=== PATIENT | male | born 1960 | race Caucasian/White ===

== ENCOUNTER 2022-01-07 00:07 | Inpatient (IN) | payer OTHER, SELFPAY ==
[2022-01-07 00:34] VITALS: BMI 45.7
--- NOTE | 2022-01-07 01:06 | PC.ADMIT ---
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 CONDITIONAL VOLUNTARY. 15 MIN SAFETY CHECKS. PSYCH GROUP. EKG NORMAL SINUS RHYTHM. VITAL SIGNS STABLE. NO CURRENT OR PREVIOUS SUBSTANCE USE HISTORY. NO KNOWN TRAUMA HISTORY. HX OF MULTIPLE PREVIOUS PSYCH ADMISSIONS BUT UNKNOWN TO [facility] [place]. NOT A TOBACCO USER. PT WAS ADMITTED FOR SI WITH A PLAN TO PUT A HOSE IN HIS EXHAUST PIPE OF HIS CAR. PT CONTINUES TO EXPRESS SI BUT FEELS SAFE ON THE UNIT AND CAN SEEK STAFF IF FEELING SUICIDAL. PT IS RECENTLY LIVING WITH HIS SISTER AND SLEEPING ON HER COUCH DUE TO FAMILY ISSUES. PT IS UNHAPPY WITH HIS CURRENT SITUATION AND FEELS HELPLESS/HOPELESS. PT IS MEDICATION COMPLIANT. HE APPEARS DEPRESSED AND ANXIOUS UPON ADMISSION. PT REPORTS THAT DOING DAILY TASKS BY HIMSELF HAVE BEEN DIFFICULT DUE TO DEPRESSION. PTS INSIGHT AND JUDGMENT ARE IMPAIRED. HE IS A&OX4. PT DENIES HI. PT DENIES AH OR VH AND DOES NOT APPEAR TO BE RESPONDING TO INTERNAL STIMULI. PT APPEARS IF HE MAY HAVE A SLIGH COGNITIVE DELAY AND IS MORE FOCUSED ON HIS SISTER'S PROBLEMS THAN HIS. PTS ADMISSION IS COMPLETE, HOWEVER, LEGALS NEED TO BE SIGNED PT TOOK SLEEPING MEDS AND WANTED TO GO TO BED UPON ARRIVAL.
[2022-01-07 06:00] VITALS: BP 130/82; PULSE 78; RESP 20; TEMP 36.6; O2SAT 97
[2022-01-07 08:08] LABS: MANUAL DIFF FLAG NO
[2022-01-07 08:19] LABS: Basophils Percent Auto 0.4 % (0-2); Eosinophils Absolute Auto 0.3 X10*3/uL (0.0-0.4); Eosinophils Percent Auto 4.3 % (0-4); Hematocrit 41.4 % (42.0-52.0); Hemoglobin 13.8 g/dl (14.0-18.0); Imm Gran Abs Auto 0.04 X10*3/uL (0.00-0.03); Imm Gran Pct Auto 0.6 % (0.0-0.4); Lymphocytes Absolute Auto 1.5 X10*3/uL (1.2-4.9); Lymphocytes Percent Auto 20.9 % (20-40); Mean Corpuscular HGB Conc 33.3 g/dl (31.0-36.0); Mean Corpuscular Hemoglobin 31.1 pg (27.0-33.0); Mean Corpuscular Volume 93.2 fL (80.0-98.0); Mean Platelet Volume 12.6 fL (9.4-12.4); Monocytes Absolute Auto 0.7 X10*3/uL (0.1-1.2); Monocytes Percent Auto 10.1 % (2-11); Neutrophils Absolute Auto 4.4 x10*3/uL (2.0-8.3); Neutrophils Percent Auto 63.7 % (45-73); Platelet Count 115 X10*3/uL (160-400); Red Blood Count 4.44 X10*6/uL (4.60-5.80); Red Cell Distribution Width 13.1 % (11.0-16.0); White Blood Count 6.9 X10*3/uL (4.8-10.8)
[2022-01-07 08:40] LABS: Alanine Aminotransferase 21 U/L (0-40); Albumin Level 3.5 g/dL (3.5-5.0); Alkaline Phosphatase 111 U/L (39-117); Anion Gap 14 (12-20); Aspartate Amino Transferase 14 U/L (5-37); Bilirubin Total 0.7 mg/dL (0.0-1.0); Blood Urea Nitrogen 18 mg/dL (9-16); Calcium 8.5 mg/dL (8.4-10.2); Carbon Dioxide 26 mmol/L (22-29); Chloride 100 mmol/L (96-108); Cholesterol 107 mg/dL; Creatinine Clr Calc Pharmacy 155.4; Estimated Glomerular Filt Rate > 60; Glucose Fasting 114 mg/dL (60-99); HDL Cholesterol 35 mg/dL; LDL Cholesterol Calculated 59 mg/dl; Sodium 136 mmol/L (135-145); Triglycerides 68 mg/dL
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
[2022-01-07] MEDS: hydrOXYzine HCL 25 MG TABLET PO ×2 (12:09→19:08)
[2022-01-07] MEDS: Acetaminophen 325 MG TABLET 650 MG PO ×2 (12:09→19:07)
[2022-01-07] MEDS: Famotidine 20 MG TABLET PO ×2 (16:00→20:03)
[2022-01-07] MEDS: Gabapentin 600 MG TABLET PO ×2 (16:00→20:03)
[2022-01-07] MEDS: allopurinoL 100 MG TABLET 200 MG PO (16:00)
[2022-01-07] MEDS: Aspirin Enteric Coated 81 MG TABLET.DR PO (16:01)
[2022-01-07 18:00] VITALS: BP 125/73; PULSE 73; RESP 16; TEMP 36.9; O2SAT 98
[2022-01-07] MEDS: clonazePAM 0.5 MG TABLET PO (20:03)
[2022-01-07] MEDS: QUEtiapine Fumarate 300 MG TABLET PO (20:03)
[2022-01-07] MEDS: Atorvastatin Calcium 80 MG TABLET PO (20:04)
[2022-01-07] MEDS: Mirtazapine 30 MG TABLET PO (20:04)
[2022-01-07] MEDS: Nystatin Cream 15 GM TUBE 1 APPL TOPICAL (21:36)
[2022-01-08 06:00] VITALS: BP 92/50; PULSE 65; RESP 18; TEMP 36.1; O2SAT 95
[2022-01-08] MEDS: Levothyroxine Sodium 75 MCG TABLET PO (06:26)
--- NOTE | 2022-01-08 06:34 | PC.NURSE ---
Pt C/O fungal infection around his navel/belly button. Provider notified. Nystatin cream ordered.
[2022-01-08] MEDS: allopurinoL 100 MG TABLET 200 MG PO (09:04)
[2022-01-08] MEDS: Gabapentin 600 MG TABLET PO ×3 (09:05→20:10)
[2022-01-08] MEDS: Aspirin Enteric Coated 81 MG TABLET.DR PO (09:05)
[2022-01-08] MEDS: Cholecalciferol (Vitamin D3) 25 MCG TABLET 50 MCG PO (09:05)
[2022-01-08] MEDS: Famotidine 20 MG TABLET PO ×2 (09:05→20:10)
[2022-01-08] MEDS: QUEtiapine Fumarate 100 MG TABLET PO (09:05)
[2022-01-08] MEDS: Loratadine 10 MG TABLET PO (09:06)
[2022-01-08 09:08] VITALS: BP 100/62; PULSE 71
[2022-01-08] MEDS: hydrOXYzine HCL 25 MG TABLET PO (10:32)
[2022-01-08] MEDS: Acetaminophen 325 MG TABLET 650 MG PO ×2 (10:32→20:53)
--- NOTE | 2022-01-08 11:43 | P.PNPSI_ITS ---
Subjective Subjective Date of Service: 01/08/22 Reason For Visit: Unspecified Depressive Disorder Other Specified Pe Subjective Notes: Conditional Voluntary Interim History: Met with patient. Discussed with Nursing. Has been more isolative and withdrawn today. Reports today feeling down in the context of 01/08 anniversary. Reminisced about when this happened. Reports feeling overwhelmed thinking about it. Intermittent SI. No psychosis. Feeling supported. Medication Compliance: Yes Side effects from medications: No Attending Groups: Yes Review of Systems Acute medical concerns: No Review of Systems Review of Systems Unremarkable Mental Status Exam Mental Status Exam Narrative: Pleasant. Engaged. Organized. Depressed. Intermittent SI. No HI. No psy chosis. Insight and judgment okay Diagnostics Vital Signs (24Hr): Vital Signs - 24 hr 01/07/22 18:00 01/08/22 06:00 01/08/22 09:08 Temperature 98.5 F 97.0 F Pulse Rate 73 65 71 Respiratory Rate 16 18 Blood Pressure 125/73 92/50 L 100/62 Pulse Oximetry 98 95 Oxygen Delivery Method Room Air Room Air BMI result Body Mass Index 45.7 Labs Results: 01/07/22 07:41 01/07/22 07:41 Labs: Laboratory Results - last 48 hr 01/07/22 01/07/22 07:41 07:41 WBC 6.9 RBC 4.44 L Hgb 13.8 L Hct 41.4 L MCV 93.2 MCH 31.1 MCHC 33.3 RDW 13.1 Plt Count 115 L MPV 12.6 H Immature Gran % (Auto) 0.6 H Neut % (Auto) 63.7 Lymph % (Auto) 20.9 [place] % (Auto) 10.1 Eos % (Auto) 4.3 H Baso % (Auto) 0.4 Lymph # (Auto) 1.5 [place] # (Auto) 0.7 Eos # (Auto) 0.3 Baso # (Auto) 0.0 Abs Immat Gran (auto) 0.04 H Absolute Neuts (auto) 4.4 Absolute Nucleated RBC 0.000 Nucleated RBC % (auto) 0.0 Sodium 136 Potassium 4.0 Chloride 100 Carbon Dioxide 26 Anion Gap 14 BUN 18 H Creatinine 0.78 Estim Creat Clear Calc 155.4 Estimated GFR > 60 Fasting Glucose 114 H Calcium 8.5 Total Bilirubin 0.7 AST 14 ALT 21 Alkaline Phosphatase 111 Total Protein 6.0 L Albumin 3.5 Triglycerides 68 Cholesterol 107 LDL Cholesterol, Calc 59 HDL Cholesterol 35 Medications Medications Current Medications Acetaminophen (Acetaminophen 325 Mg Tablet) 650 mg PO Q6H PRN PRN Reason: Headache/Pain Mild Scale (1-3) Last Admin: 01/08/22 10:32 Dose: 650 mg Al Hydroxide/Mg Hydroxide (Magnesium Hydrox/Alum Hydrox 30 Ml Oral.Susp) 30 ml PO Q6H PRN PRN Reason: Heartburn/Nausea Allopurinol (Allopurinol 100 Mg Tablet) 200 mg PO DAILY [facility] Last Admin: 01/08/22 09:04 Dose: 200 mg Aspirin (Aspirin Enteric Coated 81 Mg Tablet.Dr) 81 mg PO DAILY [facility] Last Admin: 01/08/22 09:05 Dose: 81 mg Atorvastatin Calcium (Atorvastatin Calcium 80 Mg Tablet) 80 mg PO BEDTIME [facility] Last Admin: 01/07/22 20:04 Dose: 80 mg Clonazepam (Clonazepam 0.5 Mg Tablet) 0.5 mg PO BEDTIME [facility] Last Admin: 01/07/22 20:03 Dose: 0.5 mg Famotidine (Famotidine 20 Mg Tablet) 20 mg PO BID [facility] Last Admin: 01/08/22 09:05 Dose: 20 mg Gabapentin (Gabapentin 600 Mg Tablet) 600 mg PO TID [facility] Last Admin: 01/08/22 09:05 Dose: 600 mg Hydroxyzine HCl (Hydroxyzine Hcl 25 Mg Tablet) 25 mg PO Q6H PRN PRN Reason: Anxiety Last Admin: 01/08/22 10:32 Dose: 25 mg Levothyroxine Sodium (Levothyroxine Sodium 75 Mcg Tablet) 75 mcg PO DAILY@0630 [facility] Last Admin: 01/08/22 06:26 Dose: 75 mcg Lisinopril (Lisinopril 20 Mg Tablet) 20 mg PO DAILY [facility]; Protocol Last Admin: 01/08/22 09:06 Dose: Not Given Loratadine (Loratadine 10 Mg Tablet) 10 mg PO DAILY [facility] Last Admin: 01/08/22 09:06 Dose: 10 mg Magnesium Hydroxide (Milk Of Magnesia 30 Ml Oral.Susp) 30 ml PO DAILY PRN PRN Reason: Constipation Metoprolol Succinate (Metoprolol Succinate Er 50 Mg Tab.Er.24h) 50 mg PO DAILY [facility]; Protocol Last Admin: 01/08/22 09:06 Dose: Not Given Mirtazapine (Mirtazapine 30 Mg Tablet) 30 mg PO BEDTIME [facility] Last Admin: 01/07/22 20:04 Dose: 30 mg Quetiapine Fumarate (Quetiapine Fumarate 100 Mg Tablet) 100 mg PO DAILY [facility] Last Admin: 01/08/22 09:05 Dose: 100 mg Quetiapine Fumarate (Quetiapine Fumarate 300 Mg Tablet) 300 mg PO BEDTIME [facility] Last Admin: 01/07/22 20:03 Dose: 300 mg Trazodone HCl (Trazodone Hcl 50 Mg Tablet) 50 mg PO BEDTIME PRN PRN Reason: Insomnia Vitamin D (Cholecalciferol (Vitamin D3) 25 Mcg Tablet) 50 mcg PO DAILY [facility] Last Admin: 01/08/22 09:05 Dose: 50 mcg Allergies Allergies Allergy/AdvReac Type Severity Reaction Status Date / Time No Known Allergies Allergy Verified 01/06/22 14:44 Assessment & Plan Assessment & Plan (1) Major depress dis, severe: Status: Acute Code(s): F32.2 - Major depressive disorder, single episode, severe without psychotic features Assessment and Plan: Presents with depression in the context of significant psychosocial stressors and suicidal thoughts. Is in outpatient care. Will not make any medication changes i.e. maintain Seroquel 100 mg morning 300 mg at bedtime, Remeron 30 mg at bedtime, gabapentin 600 mg 3 times per day and Klonopin 0.5 mg at bedtime. Continue to review psychotropic regimen as patient stabilizes in the hospital and also review non medication supports. 01/08/2022: No changes I spent minutes with the patient and/or on the patient floor today, greater than?50% of which was spent counseling/coordinating care. Reason for contiued inpatient stay Substantial Risk for: inability to function
[2022-01-08] MEDS: Triamcinolone Acet 0.1 % Cream 15 GM TUBE 1 APPL TOPICAL ×2 (14:12→20:17)
[2022-01-08 18:00] VITALS: BP 121/86; PULSE 88; RESP 18
[2022-01-08] MEDS: Mirtazapine 30 MG TABLET PO (20:10)
[2022-01-08] MEDS: clonazePAM 0.5 MG TABLET PO (20:10)
[2022-01-08] MEDS: Atorvastatin Calcium 80 MG TABLET PO (20:10)
[2022-01-08] MEDS: QUEtiapine Fumarate 300 MG TABLET PO (20:11)
[2022-01-09 06:00] VITALS: BP 111/64; PULSE 64; RESP 18; O2SAT 98
[2022-01-09] MEDS: Levothyroxine Sodium 75 MCG TABLET PO (06:39)
[2022-01-09] MEDS: Famotidine 20 MG TABLET PO ×2 (08:41→21:25)
[2022-01-09] MEDS: Metoprolol Succinate ER 50 MG TAB.ER.24H PO (08:41)
[2022-01-09] MEDS: lisinopriL 20 MG TABLET PO (08:41)
[2022-01-09] MEDS: Gabapentin 600 MG TABLET PO ×3 (08:41→21:26)
[2022-01-09] MEDS: Cholecalciferol (Vitamin D3) 25 MCG TABLET 50 MCG PO (08:41)
[2022-01-09] MEDS: Aspirin Enteric Coated 81 MG TABLET.DR PO (08:42)
[2022-01-09] MEDS: Triamcinolone Acet 0.1 % Cream 15 GM TUBE 1 APPL TOPICAL (08:42)
[2022-01-09] MEDS: QUEtiapine Fumarate 100 MG TABLET PO (08:42)
[2022-01-09] MEDS: allopurinoL 100 MG TABLET 200 MG PO (08:42)
[2022-01-09] MEDS: Loratadine 10 MG TABLET PO (08:42)
[2022-01-09] MEDS: Acetaminophen 325 MG TABLET 650 MG PO ×2 (08:50→21:32)
[2022-01-09] MEDS: hydrOXYzine HCL 25 MG TABLET PO (10:40)
[2022-01-09 16:10] VITALS: BP 124/81; PULSE 78; TEMP 36.2
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
[2022-01-09] MEDS: Mirtazapine 30 MG TABLET PO (21:24)
[2022-01-09] MEDS: QUEtiapine Fumarate 300 MG TABLET PO (21:25)
[2022-01-09] MEDS: clonazePAM 0.5 MG TABLET PO (21:25)
[2022-01-09] MEDS: Atorvastatin Calcium 80 MG TABLET PO (21:25)
[2022-01-10 06:00] VITALS: BP 94/52; PULSE 63; RESP 16; TEMP 36.6; O2SAT 93
[2022-01-10] MEDS: Levothyroxine Sodium 75 MCG TABLET PO (06:44)
[2022-01-10] MEDS: Gabapentin 600 MG TABLET PO ×3 (08:47→20:43)
[2022-01-10] MEDS: Cholecalciferol (Vitamin D3) 25 MCG TABLET 50 MCG PO (08:47)
[2022-01-10] MEDS: QUEtiapine Fumarate 100 MG TABLET PO (08:47)
[2022-01-10] MEDS: allopurinoL 100 MG TABLET 200 MG PO (08:47)
[2022-01-10] MEDS: Aspirin Enteric Coated 81 MG TABLET.DR PO (08:47)
[2022-01-10] MEDS: Loratadine 10 MG TABLET PO (08:47)
[2022-01-10] MEDS: Famotidine 20 MG TABLET PO ×2 (08:47→20:43)
[2022-01-10] MEDS: Triamcinolone Acet 0.1 % Cream 15 GM TUBE 1 APPL TOPICAL ×2 (08:53→20:45)
[2022-01-10] MEDS: Acetaminophen 325 MG TABLET 650 MG PO (14:23)
[2022-01-10] MEDS: hydrOXYzine HCL 25 MG TABLET PO (14:23)
[2022-01-10 18:00] VITALS: BP 120/73; PULSE 70; RESP 16; TEMP 36.5; O2SAT 98
--- NOTE | 2022-01-10 19:15 | HO.PSYCHPN ---
Subjective Subjective Date of Service: 01/10/22 Reason For Visit: Unspecified Depressive Disorder Other Specified Pe Interim History: I spoke with pt and pt's team. He is still focused on housing, just talking about it depresses me, does not want to return to his sister's residence, my sister lives in a depressing world. He feels stuck and hopeless. Feels that if i had a place to live i wouldnt be depressed. Upset about not having a car, as this is how he would cope with his sister's mental health issues- by driving away. Open to trialing an SSRI, denies having tried one before, but now feels I should try something. Past med trials consist of seroquel, remeron, and klonopin. Medication Compliance: Yes Side effects from medications: No Attending Groups: Intermittent Review of Systems Acute medical concerns: No Medical Review of Systems: unchanged Mental Status Exam Mental Status Exam Narrative: Pleasant.? Engaged.? Organized.? Depressed.? Denies active SI.? No HI.? No psychosis.? Insight and judgment okay Diagnostics Vital Signs (24Hr): Vital Signs - 24 hr 01/10/22 06:00 Temperature 97.8 F Pulse Rate 63 Respiratory Rate 16 Blood Pressure 94/52 L Pulse Oximetry 93 Oxygen Delivery Method Room Air BMI result Body Mass Index 45.7 Labs Results: 01/07/22 07:41 01/07/22 07:41 Medications Medications Current Medications Acetaminophen (Acetaminophen 325 Mg Tablet) 650 mg PO Q6H PRN PRN Reason: Headache/Pain Mild Scale (1-3) Last Admin: 01/10/22 14:23 Dose: 650 mg Al Hydroxide/Mg Hydroxide (Magnesium Hydrox/Alum Hydrox 30 Ml Oral.Susp) 30 ml PO Q6H PRN PRN Reason: Heartburn/Nausea Allopurinol (Allopurinol 100 Mg Tablet) 200 mg PO DAILY [facility] Last Admin: 01/10/22 08:47 Dose: 200 mg Aspirin (Aspirin Enteric Coated 81 Mg Tablet.) 81 mg PO DAILY [facility] Last Admin: 01/10/22 08:47 Dose: 81 mg Atorvastatin Calcium (Atorvastatin Calcium 80 Mg Tablet) 80 mg PO BEDTIME [facility] Last Admin: 01/09/22 21:25 Dose: 80 mg Clonazepam (Clonazepam 0.5 Mg Tablet) 0.5 mg PO BEDTIME [facility] Last Admin: 01/09/22 21:25 Dose: 0.5 mg Clonazepam (Clonazepam 0.5 Mg Tablet) 0.5 mg PO DAILY PRN PRN Reason: agitation, anxiety Famotidine (Famotidine 20 Mg Tablet) 20 mg PO BID [facility] Last Admin: 01/10/22 08:47 Dose: 20 mg Gabapentin (Gabapentin 600 Mg Tablet) 600 mg PO TID [facility] Last Admin: 01/10/22 14:23 Dose: 600 mg Hydroxyzine HCl (Hydroxyzine Hcl 25 Mg Tablet) 25 mg PO Q6H PRN PRN Reason: Anxiety Last Admin: 01/10/22 14:23 Dose: 25 mg Levothyroxine Sodium (Levothyroxine Sodium 75 Mcg Tablet) 75 mcg PO DAILY@0630 [facility] Last Admin: 01/10/22 06:44 Dose: 75 mcg Lisinopril (Lisinopril 20 Mg Tablet) 20 mg PO DAILY [facility]; Protocol Last Admin: 01/10/22 08:52 Dose: Not Given Loratadine (Loratadine 10 Mg Tablet) 10 mg PO DAILY [facility] Last Admin: 01/10/22 08:47 Dose: 10 mg Magnesium Hydroxide (Milk Of Magnesia 30 Ml Oral.Susp) 30 ml PO DAILY PRN PRN Reason: Constipation Metoprolol Succinate (Metoprolol Succinate Er 50 Mg Tab.Er.24h) 50 mg PO DAILY [facility]; Protocol Last Admin: 01/10/22 08:52 Dose: Not Given Mirtazapine (Mirtazapine 30 Mg Tablet) 30 mg PO BEDTIME [facility] Last Admin: 01/09/22 21:24 Dose: 30 mg Quetiapine Fumarate (Quetiapine Fumarate 100 Mg Tablet) 100 mg PO DAILY [facility] Last Admin: 01/10/22 08:47 Dose: 100 mg Quetiapine Fumarate (Quetiapine Fumarate 300 Mg Tablet) 300 mg PO BEDTIME [facility] Last Admin: 01/09/22 21:25 Dose: 300 mg Trazodone HCl (Trazodone Hcl 50 Mg Tablet) 50 mg PO BEDTIME PRN PRN Reason: Insomnia Triamcinolone Acetonide (Triamcinolone Acet 0.1 % Cream 15 Gm Tube) 1 appl TOPICAL BID [facility]; Protocol Last Admin: 01/10/22 08:53 Dose: 1 appl Vitamin D (Cholecalciferol (Vitamin D3) 25 Mcg Tablet) 50 mcg PO DAILY [facility] Last Admin: 01/10/22 08:47 Dose: 50 mcg Allergies Allergies Allergy/AdvReac Type Severity Reaction Status Date / Time No Known Allergies Allergy Verified 01/06/22 14:44 Assessment & Plan Assessment & Plan (1) Major depress dis, severe: Status: Acute Code(s): F32.2 - Major depressive disorder, single episode, severe without psychotic features Assessment and Plan: Presents with depression in the context of significant psychosocial stressors and suicidal thoughts.? Is in outpatient care. Will not make any medication changes i.e. maintain Seroquel 100 mg morning 300 mg at bedtime, Remeron 30 mg at bedtime, gabapentin 600 mg 3 times per day and Klonopin 0.5 mg at bedtime.? Continue to review psychotropic regimen as patient stabilizes in the hospital and also review non medication supports. 01/08/2022:? No changes 01/09/2022:? No changes, pt declines, reports meds help 01/10/2022: Start lexapro 10 mg QD for depression I spent minutes with the patient and/or on the patient floor today, greater than?50% of which was spent counseling/coordinating care. Patient educated on: diagnosis, medication risk/benefits and therapeutic strategies Reason for contiued inpatient stay Substantial Risk for: harm to self and med/psych decompensation
[2022-01-10] MEDS: Mirtazapine 30 MG TABLET PO (20:43)
[2022-01-10] MEDS: Atorvastatin Calcium 80 MG TABLET PO (20:43)
[2022-01-10] MEDS: QUEtiapine Fumarate 300 MG TABLET PO (20:44)
[2022-01-10] MEDS: clonazePAM 0.5 MG TABLET PO (20:44)
[2022-01-11 08:40] VITALS: BP 97/50; PULSE 63; TEMP 36.5
[2022-01-11] MEDS: Metoprolol Succinate ER 50 MG TAB.ER.24H PO (08:51)
[2022-01-11] MEDS: Escitalopram Oxalate 10 MG TABLET PO (08:51)
[2022-01-11] MEDS: Aspirin Enteric Coated 81 MG TABLET.DR PO (08:52)
[2022-01-11] MEDS: Levothyroxine Sodium 75 MCG TABLET PO (08:52)
[2022-01-11] MEDS: Cholecalciferol (Vitamin D3) 25 MCG TABLET 50 MCG PO (08:52)
[2022-01-11] MEDS: Loratadine 10 MG TABLET PO (08:52)
[2022-01-11] MEDS: Famotidine 20 MG TABLET PO ×2 (08:53→21:14)
[2022-01-11] MEDS: allopurinoL 100 MG TABLET 200 MG PO (08:53)
[2022-01-11] MEDS: QUEtiapine Fumarate 100 MG TABLET PO (08:53)
[2022-01-11] MEDS: Triamcinolone Acet 0.1 % Cream 15 GM TUBE 1 APPL TOPICAL ×2 (08:53→21:21)
[2022-01-11] MEDS: Gabapentin 600 MG TABLET PO ×3 (08:53→21:14)
[2022-01-11] MEDS: lisinopriL 20 MG TABLET PO (08:53)
--- NOTE | 2022-01-11 11:46 | HO.PM.IMCN ---
History of Present Illness Data of Consult Service Date: 01/11/22 Requesting physician: Serenity Hernandez Primary Care Provider: SHAYNA Talavera Reason for consult: medical H&P 61 year old male with history of hypothyroidism, htn, chronic gout, GERD, ulnar neuropathy, depression, anxiety, and morbid obesity admitted to psychiatry. He tells me at home he uses a powder to prevent fungal rashes in the intertriginous areas, but he is given an antifungal cream here which is difficult for him to use. He also reports constipation this morning. No other complaints. Review of Systems Review of Systems: General: No fevers, malaise, unintentional weight loss Cardiovascular: No chest pain, palpitations, or leg edema Respiratory: No shortness of breath, wheezing, cough GI: +constipation. No abdominal pain, nausea, vomiting, diarrhea, melena, hematochezia Neuro: No headaches, weakness, paresthesias Psych: +depression, +anxiety Skin: No rashes or lesions [facility] Medical History (Updated 01/11/22 @ 11:54 by KRYSTYNA Brown) Chronic gout GERD (gastroesophageal reflux disease) HTN (hypertension) Hypothyroidism Ulnar neuropathy Social History Household Members: Family Household Members Other:: SISTER Housing: Other Housing Other:: STAYING ON [place] [place] AT [facility]-UNSTABLE HOUSING Do you presently have visiting nurse or other home services: No Patient Tobacco Use Status: Never used Tobacco Use of substances other than those prescribed or required for medical reasons: No Currently Displaying Signs/Symptoms of Drug Intoxication Withdrawal: No Do you feel safe in your current relationship?: Yes Is there a partner from a previous relationship who is making you feel unsafe now?: No Advance Directives: No Advance Directives Information Provided: No Do you have thoughts of harming others: None Do you have a plan to hurt others: No Plan Recently lost weight without trying: No Nutrition Risks: No Nutritional Risk Poor oral hygiene: No service: No Sexual orientation: Straight/Heterosexual Meds Allergies Allergy/AdvReac Type Severity Reaction Status Date / Time No Known Allergies Allergy Verified 01/06/22 14:44 Active Medications: Current Medications Acetaminophen (Acetaminophen 325 Mg Tablet) 650 mg PO Q6H PRN PRN Reason: Headache/Pain Mild Scale (1-3) Last Admin: 01/10/22 14:23 Dose: 650 mg Al Hydroxide/Mg Hydroxide (Magnesium Hydrox/Alum Hydrox 30 Ml Oral.Susp) 30 ml PO Q6H PRN PRN Reason: Heartburn/Nausea Allopurinol (Allopurinol 100 Mg Tablet) 200 mg PO DAILY [facility] Last Admin: 01/11/22 08:53 Dose: 200 mg Aspirin (Aspirin Enteric Coated 81 Mg Tablet.Dr) 81 mg PO DAILY [facility] Last Admin: 01/11/22 08:52 Dose: 81 mg Atorvastatin Calcium (Atorvastatin Calcium 80 Mg Tablet) 80 mg PO BEDTIME [facility] Last Admin: 01/10/22 20:43 Dose: 80 mg Clonazepam (Clonazepam 0.5 Mg Tablet) 0.5 mg PO BEDTIME [facility] Last Admin: 01/10/22 20:44 Dose: 0.5 mg Clonazepam (Clonazepam 0.5 Mg Tablet) 0.5 mg PO DAILY PRN PRN Reason: agitation, anxiety Escitalopram Oxalate (Escitalopram Oxalate 10 Mg Tablet) 10 mg PO DAILY [facility] Last Admin: 01/11/22 08:51 Dose: 10 mg Famotidine (Famotidine 20 Mg Tablet) 20 mg PO BID [facility] Last Admin: 01/11/22 08:53 Dose: 20 mg Gabapentin (Gabapentin 600 Mg Tablet) 600 mg PO TID [facility] Last Admin: 01/11/22 08:53 Dose: 600 mg Hydroxyzine HCl (Hydroxyzine Hcl 25 Mg Tablet) 25 mg PO Q6H PRN PRN Reason: Anxiety Last Admin: 01/10/22 14:23 Dose: 25 mg Levothyroxine Sodium (Levothyroxine Sodium 75 Mcg Tablet) 75 mcg PO DAILY@0630 [facility] Last Admin: 01/11/22 08:52 Dose: 75 mcg Lisinopril (Lisinopril 20 Mg Tablet) 20 mg PO DAILY [facility]; Protocol Last Admin: 01/11/22 08:53 Dose: 20 mg Loratadine (Loratadine 10 Mg Tablet) 10 mg PO DAILY [facility] Last Admin: 01/11/22 08:52 Dose: 10 mg Magnesium Hydroxide (Milk Of Magnesia 30 Ml Oral.Susp) 30 ml PO DAILY PRN PRN Reason: Constipation Metoprolol Succinate (Metoprolol Succinate Er 50 Mg Tab.Er.24h) 50 mg PO DAILY [facility]; Protocol Last Admin: 01/11/22 08:51 Dose: 50 mg Miconazole Nitrate (Miconazole Nitrate 2% Powder 85 Gm Bottle) 1 appl TOPICAL BID [facility]; Protocol Mirtazapine (Mirtazapine 30 Mg Tablet) 30 mg PO BEDTIME [facility] Last Admin: 01/10/22 20:43 Dose: 30 mg Quetiapine Fumarate (Quetiapine Fumarate 100 Mg Tablet) 100 mg PO DAILY [facility] Last Admin: 01/11/22 08:53 Dose: 100 mg Quetiapine Fumarate (Quetiapine Fumarate 300 Mg Tablet) 300 mg PO BEDTIME [facility] Last Admin: 01/10/22 20:44 Dose: 300 mg Trazodone HCl (Trazodone Hcl 50 Mg Tablet) 50 mg PO BEDTIME PRN PRN Reason: Insomnia Triamcinolone Acetonide (Triamcinolone Acet 0.1 % Cream 15 Gm Tube) 1 appl TOPICAL BID [facility]; Protocol Last Admin: 01/11/22 08:53 Dose: 1 appl Vitamin D (Cholecalciferol (Vitamin D3) 25 Mcg Tablet) 50 mcg PO DAILY [facility] Last Admin: 01/11/22 08:52 Dose: 50 mcg Home Medications Medication Instructions Recorded Confirmed Last Taken Type allopurinol 100 mg tablet 2 tab PO DAILY 01/07/22 01/07/22 Unknown History aspirin 81 mg tablet,delayed 1 tab PO DAILY 01/07/22 01/07/22 Unknown History release atorvastatin 80 mg tablet 1 tab PO BEDTIME 01/07/22 01/07/22 Unknown History cholecalciferol (vitamin D3) 25 50 mcg PO DAILY 01/07/22 01/07/22 Unknown History mcg (1,000 unit) tablet clonazepam 0.5 mg tablet 0.5 mg PO BEDTIME 01/07/22 01/07/22 Unknown History desloratadine 5 mg tablet 1 tab PO DAILY 01/07/22 01/07/22 Unknown History famotidine 20 mg tablet 1 tab PO BID 01/07/22 01/07/22 Unknown History gabapentin 600 mg tablet 1 tab PO TID 01/07/22 01/07/22 Unknown History levothyroxine 75 mcg tablet 1 tab PO DAILY 01/07/22 01/07/22 Unknown History lisinopril 20 mg tablet 1 tab PO DAILY 01/07/22 01/07/22 Unknown History metoprolol succinate 50 mg 1 tab PO DAILY 01/07/22 01/07/22 Unknown History tablet,extended release 24 hr mirtazapine 30 mg tablet 1 tab PO BEDTIME 01/07/22 01/07/22 Unknown History quetiapine 100 mg tablet 1 tab PO QAM 01/07/22 01/07/22 Unknown History quetiapine 300 mg tablet 1 tab PO BEDTIME 01/07/22 01/07/22 Unknown History Physical Exam Vital Signs and Narrative: Vital Signs: Last Vital Signs Temp 97.7 F 01/11/22 08:40 Pulse 63 01/11/22 08:40 Resp 16 01/10/22 18:00 BP 97/50 L 01/11/22 08:40 Pulse Ox 98 01/10/22 18:00 O2 Del Method 01/10/22 18:00 BMI result Body Mass Index 45.7 Constitutional - Awake and Alert, No apparent distress Eyes - PERRLA, EOMI Cardiovascular - S1S2, RRR, No edema Respiratory - Normal lung expansion, Normal respiratory effort, No respiratory distress, CTA bilaterally Gastrointestinal - NT / ND; +BS; No rebound or guarding Extremities - no calf tenderness bilaterally, tortuous variscosities with venous stasis dermatitis Musculoskeletal - Normal inspection, normal ROM Skin - Warm/Dry Neurological - Alert & oriented x3, CN II-XII, 5/5 strength BUE and BLE Psychological - Appropriate affect Results Labs CBC and Chem 7: 01/07/22 07:41 01/07/22 07:41 Assessment and Plan (1) Major depress dis, severe: Status: Acute Plan 61 year old male with history of hypothyroidism, htn, chronic gout, GERD, ulnar neuropathy, depression, anxiety, and morbid obesity admitted to psychiatry consulted on for medical H&P. 1-Depression/anxiety with SI -Plan per psychiatry 2-HTN- controlled -Continue lisinopril and metoprolol 3-Hypothyroidism -Recommend checking TSH with free T4 reflex -Continue levothyroxine 4- Right ulnar neuropathy -Continue gabapentin 5-GERD- controlled -Continue famotidine 6-Chronic gout -Continue allopurinol Thank you for allowing me to participate in this consult. Signing off at this time. Please do not hesitate to call for further questions.
[2022-01-11] MEDS: hydrOXYzine HCL 25 MG TABLET PO (14:57)
--- NOTE | 2022-01-11 18:41 | P.PNPSI_ITS ---
Subjective Subjective Date of Service: 01/11/22 Reason For Visit: Unspecified Depressive Disorder Other Specified Pe Subjective Notes: Jeronimo Warning and Conditional Voluntary Healthcare Proxy: No Guardianship: No Medical Problems Affecting Mental Status: No Interim History: I spoke with pt's team and evaluated pt. Says he had a crazy dream last night, but overall he is trying to be more in the moment, concentrating. Tolerating lexapro 10 mg. Says he felt frustrated and triggered when someone wanted to change the channel in the public space, however he wanted to keep it on a movie. Feels he has lost a lot of control in his life and he is having resentment towards his ex , sister, and older brother due to their lack of support. Says he does not feel safe to leave but did not endorse active SI, no plan or intent. [facility], unsupported. Medication Compliance: Yes Side effects from medications: No Attending Groups: Intermittent Review of Systems Acute medical concerns: No Medical Review of Systems: unchanged Mental Status Exam Mental Status Exam Narrative: Pleasant.? Engaged.? Organized.? Depressed.? Intermittent SI.? No HI.? No psychosis.? Insight and judgment okay Diagnostics Vital Signs (24Hr): Vital Signs - 24 hr 01/11/22 08:40 Temperature 97.7 F Pulse Rate 63 Blood Pressure 97/50 L BMI result Body Mass Index 45.7 Labs Results: 01/07/22 07:41 01/07/22 07:41 Medications Medications Current Medications Acetaminophen (Acetaminophen 325 Mg Tablet) 650 mg PO Q6H PRN PRN Reason: Headache/Pain Mild Scale (1-3) Last Admin: 01/10/22 14:23 Dose: 650 mg Al Hydroxide/Mg Hydroxide (Magnesium Hydrox/Alum Hydrox 30 Ml Oral.Susp) 30 ml PO Q6H PRN PRN Reason: Heartburn/Nausea Allopurinol (Allopurinol 100 Mg Tablet) 200 mg PO DAILY [facility] Last Admin: 01/11/22 08:53 Dose: 200 mg Aspirin (Aspirin Enteric Coated 81 Mg Tablet.) 81 mg PO DAILY [facility] Last Admin: 01/11/22 08:52 Dose: 81 mg Atorvastatin Calcium (Atorvastatin Calcium 80 Mg Tablet) 80 mg PO BEDTIME [facility] Last Admin: 01/10/22 20:43 Dose: 80 mg Clonazepam (Clonazepam 0.5 Mg Tablet) 0.5 mg PO BEDTIME [facility] Last Admin: 01/10/22 20:44 Dose: 0.5 mg Clonazepam (Clonazepam 0.5 Mg Tablet) 0.5 mg PO DAILY PRN PRN Reason: agitation, anxiety Escitalopram Oxalate (Escitalopram Oxalate 10 Mg Tablet) 10 mg PO DAILY [facility] Last Admin: 01/11/22 08:51 Dose: 10 mg Famotidine (Famotidine 20 Mg Tablet) 20 mg PO BID [facility] Last Admin: 01/11/22 08:53 Dose: 20 mg Gabapentin (Gabapentin 600 Mg Tablet) 600 mg PO TID [facility] Last Admin: 01/11/22 14:18 Dose: 600 mg Hydroxyzine HCl (Hydroxyzine Hcl 25 Mg Tablet) 25 mg PO Q6H PRN PRN Reason: Anxiety Last Admin: 01/11/22 14:57 Dose: 25 mg Levothyroxine Sodium (Levothyroxine Sodium 75 Mcg Tablet) 75 mcg PO DAILY@0630 [facility] Last Admin: 01/11/22 08:52 Dose: 75 mcg Lisinopril (Lisinopril 20 Mg Tablet) 20 mg PO DAILY [facility]; Protocol Last Admin: 01/11/22 08:53 Dose: 20 mg Loratadine (Loratadine 10 Mg Tablet) 10 mg PO DAILY [facility] Last Admin: 01/11/22 08:52 Dose: 10 mg Magnesium Hydroxide (Milk Of Magnesia 30 Ml Oral.Susp) 30 ml PO DAILY PRN PRN Reason: Constipation Metoprolol Succinate (Metoprolol Succinate Er 50 Mg Tab.Er.24h) 50 mg PO DAILY [facility]; Protocol Last Admin: 01/11/22 08:51 Dose: 50 mg Miconazole Nitrate (Miconazole Nitrate 2% Powder 85 Gm Bottle) 1 appl TOPICAL BID [facility]; Protocol PRN Reason: fungal infection Mirtazapine (Mirtazapine 30 Mg Tablet) 30 mg PO BEDTIME [facility] Last Admin: 01/10/22 20:43 Dose: 30 mg Quetiapine Fumarate (Quetiapine Fumarate 100 Mg Tablet) 100 mg PO DAILY [facility] Last Admin: 01/11/22 08:53 Dose: 100 mg Quetiapine Fumarate (Quetiapine Fumarate 300 Mg Tablet) 300 mg PO BEDTIME [facility] Last Admin: 01/10/22 20:44 Dose: 300 mg Trazodone HCl (Trazodone Hcl 50 Mg Tablet) 50 mg PO BEDTIME PRN PRN Reason: Insomnia Triamcinolone Acetonide (Triamcinolone Acet 0.1 % Cream 15 Gm Tube) 1 appl TOPICAL BID [facility]; Protocol Last Admin: 01/11/22 08:53 Dose: 1 appl Vitamin D (Cholecalciferol (Vitamin D3) 25 Mcg Tablet) 50 mcg PO DAILY [facility] Last Admin: 01/11/22 08:52 Dose: 50 mcg Allergies Allergies Allergy/AdvReac Type Severity Reaction Status Date / Time No Known Allergies Allergy Verified 01/06/22 14:44 Assessment & Plan Assessment & Plan (1) Major depress dis, severe: Status: Acute Code(s): F32.2 - Major depressive disorder, single episode, severe without psychotic features Plan Presents with depression in the context of significant psychosocial stressors and suicidal thoughts.? Is in outpatient care. Will not make any medication changes i.e. maintain Seroquel 100 mg morning 300 mg at bedtime, Remeron 30 mg at bedtime, gabapentin 600 mg 3 times per day and Klonopin 0.5 mg at bedtime.? Continue to review psychotropic regimen as patient stabilizes in the hospital and also review non medication supports. 01/08/2022:? No changes 01/09/2022:? No changes, pt declines, reports meds help 01/10/2022:? Start lexapro 10 mg QD for depression 01/11/2022: tolerating lexapro I spent minutes with the patient and/or on the patient floor today, greater than?50% of which was spent counseling/coordinating care. Patient educated on: medication risk/benefits and therapeutic strategies Reason for contiued inpatient stay Substantial Risk for: med/psych decompensation
[2022-01-11] MEDS: clonazePAM 0.5 MG TABLET PO ×2 (19:05→21:14)
[2022-01-11 19:50] VITALS: BP 141/73; PULSE 87; TEMP 36.6; O2SAT 95
[2022-01-11] MEDS: Mirtazapine 30 MG TABLET PO (21:14)
[2022-01-11] MEDS: Atorvastatin Calcium 80 MG TABLET PO (21:14)
[2022-01-11] MEDS: QUEtiapine Fumarate 300 MG TABLET PO (21:14)
[2022-01-11] MEDS: Acetaminophen 325 MG TABLET 650 MG PO (21:24)
[2022-01-12 07:00] VITALS: BMI 46.6
[2022-01-12 08:00] VITALS: BP 109/61; PULSE 62; TEMP 36.2
[2022-01-12] MEDS: Loratadine 10 MG TABLET PO (08:24)
[2022-01-12] MEDS: Aspirin Enteric Coated 81 MG TABLET.DR PO (08:24)
[2022-01-12] MEDS: allopurinoL 100 MG TABLET 200 MG PO (08:24)
[2022-01-12] MEDS: Gabapentin 600 MG TABLET PO ×3 (08:24→20:12)
[2022-01-12] MEDS: Escitalopram Oxalate 10 MG TABLET PO (08:25)
[2022-01-12] MEDS: Cholecalciferol (Vitamin D3) 25 MCG TABLET 50 MCG PO (08:25)
[2022-01-12] MEDS: lisinopriL 20 MG TABLET PO (08:25)
[2022-01-12] MEDS: Levothyroxine Sodium 75 MCG TABLET PO (08:25)
[2022-01-12] MEDS: Metoprolol Succinate ER 50 MG TAB.ER.24H PO (08:25)
[2022-01-12] MEDS: Famotidine 20 MG TABLET PO ×2 (08:25→20:12)
[2022-01-12] MEDS: QUEtiapine Fumarate 100 MG TABLET PO (08:25)
[2022-01-12] MEDS: Acetaminophen 325 MG TABLET 650 MG PO ×2 (09:17→16:46)
[2022-01-12] MEDS: Triamcinolone Acet 0.1 % Cream 15 GM TUBE 1 APPL TOPICAL (09:18)
[2022-01-12] MEDS: hydrOXYzine HCL 25 MG TABLET PO (14:06)
--- NOTE | 2022-01-12 19:20 | HO.PSYCHPN ---
Subjective Subjective Date of Service: 01/12/22 Reason For Visit: Unspecified Depressive Disorder Other Specified Pe Subjective Notes: Jeronimo Warning and Conditional Voluntary Healthcare Proxy: No Guardianship: No Medical Problems Affecting Mental Status: No Interim History: I spoke to pt's team and pt. He reports feeling overwhelmed that he is going home tomorrow, it just shocked me today to hear that. However, he consistenlty denies SI, feels safe, and chief complaint is housing instability, which services cannot fix. Pt can safely discharge back to his sister's residence. Reports he talked to his sister today and she feels bad for pushing me over the edge. He is agitated and long winded when talking about his family dynamics and stressors. His sister also told him she thinks she found someone who can help him with his car, which is much welcomed news. Pt says he is still resentful than his daughters and cannot help him, as his has medical conditions and one daughter cares for her and the other is in [place]. He continues to tolerate lexapro, unclear benefit. Medication Compliance: Yes Side effects from medications: No Attending Groups: Intermittent Review of Systems Acute medical concerns: No Medical Review of Systems: unchanged Mental Status Exam Mental Status Exam Narrative: Pleasant.? Engaged.? Organized.? Depressed.? Denies SI.? No HI.? No psychosis.? Insight and judgment okay Diagnostics Vital Signs (24Hr): Vital Signs - 24 hr 01/11/22 19:50 01/12/22 08:00 Temperature 97.8 F 97.1 F Pulse Rate 87 62 Blood Pressure 141/73 H 109/61 Pulse Oximetry 95 Oxygen Delivery Method Room Air BMI result Body Mass Index 46.6 Labs Results: 01/07/22 07:41 01/07/22 07:41 Medications Medications Current Medications Acetaminophen (Acetaminophen 325 Mg Tablet) 650 mg PO Q6H PRN PRN Reason: Headache/Pain Mild Scale (1-3) Last Admin: 01/12/22 16:46 Dose: 650 mg Al Hydroxide/Mg Hydroxide (Magnesium Hydrox/Alum Hydrox 30 Ml Oral.Susp) 30 ml PO Q6H PRN PRN Reason: Heartburn/Nausea Allopurinol (Allopurinol 100 Mg Tablet) 200 mg PO DAILY [facility] Last Admin: 01/12/22 08:24 Dose: 200 mg Aspirin (Aspirin Enteric Coated 81 Mg Tablet.Dr) 81 mg PO DAILY [facility] Last Admin: 01/12/22 08:24 Dose: 81 mg Atorvastatin Calcium (Atorvastatin Calcium 80 Mg Tablet) 80 mg PO BEDTIME [facility] Last Admin: 01/11/22 21:14 Dose: 80 mg Clonazepam (Clonazepam 0.5 Mg Tablet) 0.5 mg PO BEDTIME [facility] Last Admin: 01/11/22 21:14 Dose: 0.5 mg Clonazepam (Clonazepam 0.5 Mg Tablet) 0.5 mg PO DAILY PRN PRN Reason: agitation, anxiety Last Admin: 01/11/22 19:05 Dose: 0.5 mg Escitalopram Oxalate (Escitalopram Oxalate 10 Mg Tablet) 10 mg PO DAILY [facility] Last Admin: 01/12/22 08:25 Dose: 10 mg Famotidine (Famotidine 20 Mg Tablet) 20 mg PO BID [facility] Last Admin: 01/12/22 08:25 Dose: 20 mg Gabapentin (Gabapentin 600 Mg Tablet) 600 mg PO TID [facility] Last Admin: 01/12/22 14:06 Dose: 600 mg Hydroxyzine HCl (Hydroxyzine Hcl 25 Mg Tablet) 25 mg PO Q6H PRN PRN Reason: Anxiety Last Admin: 01/12/22 14:06 Dose: 25 mg Levothyroxine Sodium (Levothyroxine Sodium 75 Mcg Tablet) 75 mcg PO DAILY@0630 [facility] Last Admin: 01/12/22 08:25 Dose: 75 mcg Lisinopril (Lisinopril 20 Mg Tablet) 20 mg PO DAILY [facility]; Protocol Last Admin: 01/12/22 08:25 Dose: 20 mg Loratadine (Loratadine 10 Mg Tablet) 10 mg PO DAILY [facility] Last Admin: 01/12/22 08:24 Dose: 10 mg Magnesium Hydroxide (Milk Of Magnesia 30 Ml Oral.Susp) 30 ml PO DAILY PRN PRN Reason: Constipation Metoprolol Succinate (Metoprolol Succinate Er 50 Mg Tab.Er.24h) 50 mg PO DAILY [facility]; Protocol Last Admin: 01/12/22 08:25 Dose: 50 mg Miconazole Nitrate (Miconazole Nitrate 2% Powder 85 Gm Bottle) 1 appl TOPICAL BID PRN; Protocol PRN Reason: fungal infection Mirtazapine (Mirtazapine 30 Mg Tablet) 30 mg PO BEDTIME [facility] Last Admin: 01/11/22 21:14 Dose: 30 mg Quetiapine Fumarate (Quetiapine Fumarate 100 Mg Tablet) 100 mg PO DAILY [facility] Last Admin: 01/12/22 08:25 Dose: 100 mg Quetiapine Fumarate (Quetiapine Fumarate 300 Mg Tablet) 300 mg PO BEDTIME [facility] Last Admin: 01/11/22 21:14 Dose: 300 mg Trazodone HCl (Trazodone Hcl 50 Mg Tablet) 50 mg PO BEDTIME PRN PRN Reason: Insomnia Triamcinolone Acetonide (Triamcinolone Acet 0.1 % Cream 15 Gm Tube) 1 appl TOPICAL BID [facility]; Protocol Last Admin: 01/12/22 09:18 Dose: 1 appl Vitamin D (Cholecalciferol (Vitamin D3) 25 Mcg Tablet) 50 mcg PO DAILY [facility] Last Admin: 01/12/22 08:25 Dose: 50 mcg Allergies Allergies Allergy/AdvReac Type Severity Reaction Status Date / Time No Known Allergies Allergy Verified 01/06/22 14:44 Assessment & Plan Assessment & Plan (1) Major depress dis, severe: Status: Acute Code(s): F32.2 - Major depressive disorder, single episode, severe without psychotic features Plan Presents with depression in the context of significant psychosocial stressors and suicidal thoughts.? Is in outpatient care. Will not make any medication changes i.e. maintain Seroquel 100 mg morning 300 mg at bedtime, Remeron 30 mg at bedtime, gabapentin 600 mg 3 times per day and Klonopin 0.5 mg at bedtime.? Continue to review psychotropic regimen as patient stabilizes in the hospital and also review non medication supports. 01/08/2022:? No changes 01/09/2022:? No changes, pt declines, reports meds help 01/10/2022:? Start lexapro 10 mg QD for depression 01/11/2022: tolerating lexapro 01/12/2022: no changes I spent minutes with the patient and/or on the patient floor today, greater than?50% of which was spent counseling/coordinating care. Patient educated on: therapeutic strategies Reason for contiued inpatient stay Substantial Risk for: med/psych decompensation
[2022-01-12 19:50] VITALS: BP 119/61; PULSE 72; RESP 16; TEMP 36.6; O2SAT 96
[2022-01-12] MEDS: QUEtiapine Fumarate 300 MG TABLET PO (20:12)
[2022-01-12] MEDS: Atorvastatin Calcium 80 MG TABLET PO (20:12)
[2022-01-12] MEDS: Mirtazapine 30 MG TABLET PO (20:13)
[2022-01-12] MEDS: clonazePAM 0.5 MG TABLET PO (20:13)
[2022-01-13 08:00] VITALS: BP 132/70; PULSE 76; TEMP 36.8
[2022-01-13] MEDS: Cholecalciferol (Vitamin D3) 25 MCG TABLET 50 MCG PO (09:06)
[2022-01-13] MEDS: QUEtiapine Fumarate 100 MG TABLET PO (09:06)
[2022-01-13] MEDS: Gabapentin 600 MG TABLET PO (09:06)
[2022-01-13] MEDS: Loratadine 10 MG TABLET PO (09:06)
[2022-01-13] MEDS: Levothyroxine Sodium 75 MCG TABLET PO (09:06)
[2022-01-13] MEDS: allopurinoL 100 MG TABLET 200 MG PO (09:06)
[2022-01-13] MEDS: Famotidine 20 MG TABLET PO (09:07)
[2022-01-13] MEDS: Escitalopram Oxalate 10 MG TABLET PO (09:07)
[2022-01-13] MEDS: Metoprolol Succinate ER 50 MG TAB.ER.24H PO (09:07)
[2022-01-13] MEDS: Aspirin Enteric Coated 81 MG TABLET.DR PO (09:07)
[2022-01-13] MEDS: lisinopriL 20 MG TABLET PO (09:07)
[2022-01-13] MEDS: Triamcinolone Acet 0.1 % Cream 15 GM TUBE 1 APPL TOPICAL (09:08)
[2022-01-13] MEDS: Acetaminophen 325 MG TABLET 650 MG PO (09:20)
--- NOTE | 2022-01-13 16:09 | P.DS_ITS ---
DS: Providers Provider Date of Service: 01/13/22 Date of admission: 01/07/22 00:07 Date of discharge: 01/13/22 Primary care physician: Byron Romero APRN Admitting clinician: Pepito Paredes Consults: 01/06/22 14:44 Consult to Hospitalist Routine Consulting Provider: Hospitalist Reason For Exam: [facility] Transfer for psych inpatient admit 01/07/22 00:39 Consult to Hospitalist Routine Consulting Provider: Hospitalist Reason For Exam: adm physical Attending physician on discharge: Trung Love Discharging clinician: Serenity Hernandez DS: Diagnosis Discharge Diagnosis (1) Major depress dis, severe: Status: Acute DS: Medications Discharge Medications Home Medications: Home Medications Medication Instructions Recorded Confirmed allopurinol 100 mg tablet 2 tab PO DAILY 01/07/22 01/07/22 aspirin 81 mg tablet,delayed 1 tab PO DAILY 01/07/22 01/07/22 release atorvastatin 80 mg tablet 1 tab PO BEDTIME 01/07/22 01/07/22 cholecalciferol (vitamin D3) 25 50 mcg PO DAILY 01/07/22 01/07/22 mcg (1,000 unit) tablet desloratadine 5 mg tablet 1 tab PO DAILY 01/07/22 01/07/22 famotidine 20 mg tablet 1 tab PO BID 01/07/22 01/07/22 gabapentin 600 mg tablet 1 tab PO TID 01/07/22 01/07/22 levothyroxine 75 mcg tablet 1 tab PO DAILY 01/07/22 01/07/22 lisinopril 20 mg tablet 1 tab PO DAILY 01/07/22 01/07/22 metoprolol succinate 50 mg 1 tab PO DAILY 01/07/22 01/07/22 tablet,extended release 24 hr mirtazapine 30 mg tablet 1 tab PO BEDTIME 01/07/22 01/07/22 quetiapine 100 mg tablet 1 tab PO QAM 01/07/22 01/07/22 quetiapine 300 mg tablet 1 tab PO BEDTIME 01/07/22 01/07/22 Previous Rx's Medication Instructions Recorded clonazepam 0.5 mg tablet 0.5 mg PO BEDTIME #30 tabs 01/13/22 clonazepam 0.5 mg tablet 0.5 mg PO BID PRN agitation, 01/13/22 anxiety #60 tabs escitalopram oxalate 10 mg tablet 10 mg PO DAILY #30 tabs 01/13/22 escitalopram oxalate 10 mg tablet 10 mg PO DAILY #30 tabs 01/13/22 (Lexapro) Mental Status Exam Mental Status Exam Narrative: Pleasant.? Engaged.? Organized.? Depressed.? Denies SI.? No HI.? No psychosis.? Insight and judgment okay DS: Summary Hospital Course Hospital Course: Fredi is 61 YEAR male who presented to [facility] from [facility] on 01/07/22. No concerns for alcohol abuse or substance use. Hx of previous inpatient admissions but not known to [facility]. He presented with worsening depression, SI with a plan to put a hose into the exhaust pipe of his car. Pt is currently homeless, staying with his sister but has interpersonal issues with her, says she has mental health issues and is difficult to live with. He has limited family supports. On disability. Feeling helpless and hopeless since his car broke down, as he does not want to be isolated with his sister but has no where else to go. He is medication adherent.? 01/07/2022: Will not make any medication changes i.e. maintain Seroquel 100 mg morning 300 mg at bedtime, Remeron 30 mg at bedtime, gabapentin 600 mg 3 times per day and Klonopin 0.5 mg at bedtime.? Continue to review psychotropic regimen as patient stabilizes in the hospital and also review non medication supports. 01/08/2022:? No changes 01/09/2022:? No changes, pt declines, reports meds help 01/10/2022:? Start lexapro 10 mg QD for depression 01/11/2022: tolerating lexapro 01/12/2022: no changes Time Spent with Patient Time attestation: Total time spent providing and/or coordinating discharge services: Discharge Plan Discharge Anticipated Discharge Date/Time: 01/13/22 10:00 Patient Disposition: Home, Self-Care Discharge Diagnosis: MDD, recurrent, Adjustment Disorder Referrals: Therapy: Jessy Marie [Other] - 01/17/22 2:00 pm (This appointment is in- office at the above location) Psychiatric Med Evaluation: Idania Segundo [Other] - 02/08/22 9:00 am (This is a video Telehealth appointment) Psychiatric Med Management: Idania Segundo [Other] - 03/08/22 10:00 am (This is a video Telehealth appointment) [facility] Form Stripper: Vida Chin [Other] - 1 Week (Please contact Vida directly at the above number for assistance with filling out housing applications) JANICE CHENG [Other] - 1 Week (OFFICE WILL CALL PT. FOR FOLLOW-UP APPOINTMENT) Discharge Medications: Discontinued gabapentin 600 mg tablet 1 tab PO TID clonazepam 0.5 mg Tablet 0.5 mg PO BEDTIME Rx Instructions: administer 30 minutes before bedtime No Action atorvastatin 80 mg tablet 1 tab PO BEDTIME gabapentin 600 mg tablet 1 tab PO TID quetiapine 300 mg tablet 1 tab PO BEDTIME lisinopril 20 mg tablet 1 tab PO DAILY clonazepam 0.5 mg tablet 1 tab PO BID PRN (Reason: anxiety) quetiapine 100 mg tablet 1 tab PO QAM famotidine 20 mg tablet 1 tab PO BID mirtazapine 30 mg tablet 1 tab PO BEDTIME allopurinol 100 mg tablet 2 tab PO DAILY levothyroxine 75 mcg tablet 1 tab PO QAM benzonatate 200 mg capsule 200 mg PO TID PRN (Reason: cough) Qty: 30 0RF Discharge Orders: Discharge Order (Routine); Ordered 01/13/22 Ordered By: Serenity Hernandez Diet: Advance to usual diet Activity on Discharge: As tolerated Stand Alone Forms: Patient Portal Discharge page, Community Support Care Plan Goals: Continue psychiatric medications as prescribed and follow up with outpatient referrals and PCP. Health Concerns: Depression Homelessness Obesity Plan of Treatment: Attend follow up appointments with OP psych services and PCP Patient will continue on psychotropic medication regimen for mood stability Take medications as directed A one month supply of medication has been sent to your pharmacy Crisis Team if needed [phone] Call and or return if needed Assessment: Risk assessment at time of discharge:? Patient was interviewed prior to discharge and found to be fully oriented and without any SI or HI. Patient has insight and demonstrates good judgment in terms of wanting to pursue treatment. Patient is not in imminent risk of harm to self or others and has a safety plan that includes presenting to the closest ER or calling 911 if feeling unsafe.? Patient has been observed closely by nursing and unit staff throughout admission; patient has not engaged in any behaviors that suggest dangerousness to self or others and has demonstrated appropriate behaviors and impulse control Discharge Date/Time: 01/13/22 12:00
--- OUTSIDE RECORDS SUMMARY | 2022-01-25 13:54 | XMS_ITS | Continuity of Care Document ---
:1960 Author Organization [facility] Address [address] [place] [address]- Care Team Providers Name Role Phone Fan MEZA ([facility]), Tho Thorne Primary Care Physician [phone] Encounter [facility] Date(s): 08/08/21 - 09/07/[address] [address]- Allergies, Adverse Reactions, Alerts No Known Allergies Immunizations Given and Recorded Vaccine Date Status Refusal Reason SARS-CoV-2 (COVID-19) mRNA-7370 vaccine 04/10/21 Recorded influenza virus vaccine, inactivated 01/17/21 Recorded Medications allopurinol 100 mg oral tablet 200 mg, 2, tablet, By Mouth, Daily, # 60 tablet, Refills 0, Tot. Refills 0, Maintenance, 06/09/21 11:10:00 EST, Route to Pharmacy Electronically, [facility] #[id number], Partial fill upon patient request if the prescription is for a schedule II o... Start Date: 06/09/21 Stop Date: 07/09/21 Status: Orderedaspirin 81 mg oral delayed release tablet 81 mg, By Mouth, Daily, # 30 tablet, Refills 0, Tot. Refills 0, Maintenance, 06/09/21 11:10:00 EST, Route to Pharmacy Electronically, [facility] #[id number], Partial fill upon patient request if the prescription is for a schedule II opioid drug.,... Start Date: 06/09/21 Stop Date: 07/09/21 Status: Orderedfamotidine 20 mg oral tablet 20 mg, 1, tablet, By Mouth, 2 times a day, # 60 tablet, Refills 0, Tot. Refills 0, Maintenance, 06/09/21 11:10:00 EST, Route to Pharmacy Electronically, [facility] #[id number], Partial fill upon patient request if the prescription is for a schedu... Start Date: 06/09/21 Stop Date: 07/09/21 Status: Orderedgabapentin 600 mg oral tablet 1 tablet = 600 mg, By Mouth, 3 times a day, # 42 tablet, 2 Refills, Maintenance, 06/09/21 11:11:00 EST, Tablet, [facility] #[id number], Partial fill upon patient request if the prescription is fora schedule II opioid drug., 183, cm, 06/09/21 8:4... Start Date: 06/09/21 Stop Date: 07/21/21 Status: Orderedlevothyroxine 75 mcg (0.075 mg) oral tablet = 75 mcg, By Mouth, Daily before breakfast, # 30 tablet, 0 Refills, Maintenance, 06/09/21 11:11:00 EST, Tablet, [facility] #[id number], Partial fill upon patient request if the prescription is fora schedule II opioid drug., 183, cm, 06/09/21 8:4... Start Date: 06/09/21 Stop Date: 07/09/21 Status: Orderedlisinopril 20 mg oral tablet 20 mg, 1, tablet, By Mouth, Daily, # 30 tablet, Refills 0, Tot. Refills 0, Maintenance, 06/09/21 11:11:00 EST, Route to Pharmacy Electronically, [facility] #[id number], Partial fill upon patient request if the prescription is for a schedule II op... Start Date: 06/09/21 Stop Date: 07/09/21 Status: Ordered Problem List Condition Effective Dates Status Health Status Informant Aneurysm of aorta(Confirmed) Active Persistent depressive disorder with Active anxious distress, currently mild(Confirmed) Homelessness(Confirmed) Active Hyperlipidemia(Confirmed) Active Hypertension(Confirmed) Active Hypothyroidism(Confirmed) Active Interpersonal problem(Confirmed) Active Morbid obesity(Confirmed) Active Severe obesity(Confirmed) Active Social History Social History Type Response Smoking Status Never (less than 100 in life time) entered on: 12/27/20 Sex
--- OUTSIDE RECORDS SUMMARY | 2022-01-25 13:54 | XMS_ITS | Continuity of Care Document ---
:1960 Author Organization [facility] Address [address] [place] [address]- Care Team Providers Name Role Phone aFn MEZA ([facility]), Tho Thorne Primary Care Physician [phone] Encounter [facility] Date(s): 01/04/22 - 01/06/[address] [address]- Discharge Disposition: Disch/Trans to a [facility] Attending Physician: Andrés Cabello MD Admitting Physician: Andrés Cabello MD Referring Physician: Not on Staff, Referring MD Allergies, Adverse Reactions, Alerts No Known Allergies Immunizations Given and Recorded Vaccine Date Status Refusal Reason SARS-CoV-2 (COVID-19) [id number] vaccine 04/10/21 Recorded influenza virus vaccine, inactivated 01/17/21 Recorded Medications allopurinol 100 mg oral tablet 200 mg, 2, tablet, By Mouth, Daily, # 60 tablet, Refills 0, Tot. Refills 0, Maintenance, 06/09/21 11:10:00 EST, Route to Pharmacy Electronically, [facility] #[id number], Partial fill upon patient request if the prescription is for a schedule II o... Start Date: 06/09/21 Stop Date: 07/09/21 Status: Orderedaspirin 81 mg oral delayed release tablet 81 mg, By Mouth, Daily, # 30 tablet, Refills 0, Tot. Refills 0, Maintenance, 06/09/21 11:10:00 EST, Route to Pharmacy Electronically, [facility] #[id number], Partial fill upon patient request if the prescription is for a schedule II opioid drug.,... Start Date: 06/09/21 Stop Date: 07/09/21 Status: Orderedatorvastatin 80 mg oral tablet 1 tablet, By Mouth, Daily at bedtime, # 90 tablet, 1 Refills, 08/30/21 17:01:00 EDT, [facility] #[id number], 183, cm, 08/30/21 13:45:00 EDT, Height, 160, kg, 06/15/21 15:18:00 EST, Dry Weight Start Date: 08/30/21 Status: Orderedcholecalciferol 1000 intl units oral tablet 2 tablet = 50 mcg, By Mouth, Daily, # 60 tablet, 5 Refills, Maintenance, 08/23/21 15:53:00 EDT, Tablet, [facility] #[id number], Partial fill upon patient request if the prescription is for a schedule II opioid drug., 183, cm, 06/15/21 15:18:00 ES... Start Date: 08/23/21 Stop Date: 02/19/22 Status: OrderedclonazePAM 0.5 mg oral tablet 1 tablet, By Mouth, Daily at bedtime, # 30 tablet, 3 Refills, Maintenance, 12/06/21 14:16:00 EDT, [facility] #[id number], 183, cm, 11/27/21 22:25:00 EDT, Height, 152, kg, 11/27/21 22:25:00 EDT, Dry Weight Start Date: 12/06/21 Stop Date: 04/05/22 Status: Ordereddesloratadine 5 mg oral tablet 1 tablet = 5 mg, By Mouth, Daily, # 30 tablet, 5 Refills, Maintenance, 11/14/21 12:18:00 EDT, Tablet, [facility] #[id number], Partial fill upon patient request if the prescription is for a schedule II opioid drug., 183, cm, 08/30/21 13:45:00 EDT,... Start Date: 11/14/21 Status: Orderedfamotidine 20 mg oral tablet 20 mg, 1, tablet, By Mouth, 2 times a day, # 60 tablet, Refills 0, Tot. Refills 0, Maintenance, 01/04/22 13:25:00 EDT, Route to Pharmacy Electronically, [facility] #[id number], Partial fill upon patient request if the prescription is for a schedu... Start Date: 01/04/22 Stop Date: 02/03/22 Status: Orderedgabapentin 300 mg oral capsule 600 mg, Capsule, By Mouth, 01/06/22 21:00:00 EDT Start Date: 01/06/22 Stop Date: 01/06/22 Status: Completedgabapentin 600 mg oral tablet 1 tablet = 600 mg, By Mouth, 3 times a day, # 42 tablet, 2 Refills, Maintenance, 06/09/21 11:11:00 EST, Tablet, [facility] #[id number], Partial fill upon patient request if the prescription is fora schedule II opioid drug., 183, cm, 06/09/21 8:4... Start Date: 06/09/21 Stop Date: 07/21/21 Status: Orderedlevothyroxine 75 mcg (0.075 mg) oral tablet = 75 mcg, By Mouth, Daily before breakfast, # 30 tablet, 5 Refills, Maintenance, 09/28/21 8:23:00 EDT, Tablet, [facility] #[id number], Partial fill upon patient request if the prescription is for a schedule II opioid drug., 183, cm, 08/30/21 13:4... Start Date: 09/28/21 Stop Date: 03/27/22 Status: Orderedlisinopril 20 mg oral tablet 20 mg, Tablet, By Mouth, 01/06/22 9:00:00 EDT Start Date: 01/06/22 Stop Date: 01/06/22 Status: Completedlisinopril 20 mg oral tablet 20 mg, 1, tablet, By Mouth, Daily, # 30 tablet, Refills 0, Tot. Refills 0, Maintenance, 06/09/21 11:11:00 EST, Route to Pharmacy Electronically, [facility] #[id number], Partial fill upon patient request if the prescription is for a schedule II op... Start Date: 06/09/21 Stop Date: 07/09/21 Status: Orderedmetoprolol 50 mg oral tablet, extended release 50 mg, XL Tablet, By Mouth, 01/06/22 9:00:00 EDT Start Date: 01/06/22 Stop Date: 01/06/22 Status: Completedmetoprolol 50 mg oral tablet, extended release 50 mg, 1, tablet, By Mouth, Daily, # 30 tablet, Refills 0, Tot. Refills 0, Maintenance, 08/30/21 14:01:00 EDT, Route to Pharmacy Electronically, [facility] #[id number], Partial fill upon patient request if the prescription is for a schedule II op... Start Date: 08/30/21 Stop Date: 09/29/21 Status: Orderedmirtazapine 30 mg oral tablet 1 tablet = 30 mg, By Mouth, Daily at bedtime, # 90 tablet, 0 Refills, Maintenance, 12/05/21 15:14:00EDT, Tablet, [facility] #[id number], Partial fill upon patient request if the prescription is for a schedule II opioid drug., 183, cm, 11/27/21 2... Start Date: 12/05/21 Stop Date: 03/05/22 Status: OrderedQUEtiapine 100 mg oral tablet 100 mg, 1, tablet, By Mouth, Daily in AM, for 90 days, # 90 tablet, Refills 0, Tot. Refills 0, Physician Stop 03/05/22 15:15:00 EST, 12/05/21 15:15:00 EDT, Route to Pharmacy Electronically, [facility] #[id number], 183, cm, 11/27/21 22:25:00 EDT,... Start Date: 12/05/21 Stop Date: 03/05/22 Status: Ordered Problem List Condition Effective Dates Status Health Status Informant Aneurysm of aorta(Confirmed) Active Depression(Confirmed) Active Persistent depressive disorder with Active anxious distress, currently mild(Confirmed) Homelessness(Confirmed) Active Hyperlipidemia(Confirmed) Active Hypertension(Confirmed) Active Hypothyroidism(Confirmed) Active Interpersonal problem(Confirmed) Active Morbid obesity(Confirmed) Active Severe obesity(Confirmed) Active Suicidal ideations(Confirmed) Active Vital Signs Most recent to oldest 1 2 3 [Reference Range]: Oxygen Saturation [94-100 %] 92 % 99 % 94 % *L* (01/06/22 8:24 AM) (01/06/22 4:50 AM ) (01/06/22 11:30 PM) Pulse Rate [55-90 bpm] 93 bpm 67 bpm 67 bpm *H* (01/06/22 10:00 AM) (01/06/22 8:24 A M) (01/06/22 11:30 PM) Blood Pressure [90-138/55-84 mm 106/55 mm Hg 105/70 mm Hg 105/70 mm Hg Hg] (01/06/22 11:30 PM) (01/06/22 10:00 AM) (01/06/22 9:59 AM) Respiratory Rate [16-30 br/min] 18 br/min 18 br/min 18 br/min (01/06/22 11:30 PM) (01/06/22 11:08 PM) (01/06/22 10:0 8 PM) Temperature [96.8-100.4 DegF] 98.2 DegF 97.9 DegF 97 .7 DegF (01/06/22 11:30 PM) (01/06/22 4:50 AM) (01/06/22 12:29 AM) Mode of Delivery (Oxygen) Room air Room air Room a ir (01/06/22 11:30 PM) (01/06/22 8:24 AM) (01/06/22 4:50 AM) Blood pressure sites Arm, left Arm, left Arm, right (01/06/22 8:24 AM) (01/05/22 6:01 PM) (01/05/22 2:11 P M) Temperature Route Oral Oral Oral (01/06/22 11:30 PM) (01/06/22 12:29 AM) (01/05/22 6:01 PM) Social History Social History Type Response Smoking Status Never (less than 100 in life time) entered on: 12/27/20 Sex Care Team PersonnelName: Fan MEZA ([facility] [place]), Tho Thorne Address: [address] [place] [address]
--- OUTSIDE RECORDS SUMMARY | 2022-01-25 13:54 | XMS_ITS | Continuity of Care Document ---
:1960 Author Organization [facility] Address [address] [place] [address]- Care Team Providers Name Role Phone Fan MEZA ([facility]), Tho Thorne Primary Care Physician Encounter [facility] Date(s): 04/09/21 - 04/09/[address] [address]- Discharge Disposition: A-D/C Home Attending Physician: Samuel Barrow MD Admitting Physician: Samuel Barrow MD Referring Physician: Not on Staff, Referring MD Allergies, Adverse Reactions, Alerts Substance Reaction Severity Status NKA Active Medications doxycycline monohydrate 100 mg oral capsule 1 capsule = 100 mg, By Mouth, 2 times a day, for 7 days, # 14 capsule, 0 Refills, Acute 04/16/21 18:34:00 EST, 04/09/21 18:34:00 EST, Capsule, [facility] #[id number], Partial fill upon patient request if the prescription is for a schedule II opio... Start Date: 04/09/21 Stop Date: 04/16/21 Status: Ordered Problem List Condition Effective Dates Status Health Status Informant Hyperlipidemia(Confirmed) Active Hypertension(Confirmed) Active Hypothyroidism(Confirmed) Active Morbid obesity(Confirmed) Active Severe obesity(Confirmed) Active Vital Signs Most recent to oldest [Reference Range]: 1 2 Height 183 cm 183 cm (04/09/21 5:46 PM) (04/09/21 5:44 PM) Weight 167 kg 167 kg (04/09/21 5:46 PM) (04/09/21 5:44 PM) Oxygen Saturation [94-100 %] 93 % *L* (04/09/21 5:44 PM) Pulse Rate [55-90 bpm] 69 bpm (04/09/21 5:44 PM) Body Mass Index [18.5-24.99] 49.87 *>HHI* (04/09/21 5:44 PM) Blood Pressure [90-138/55-84 mm Hg] 131/78 mm Hg (04/09/21 5:46 PM) Respiratory Rate [16-30 br/min] 20 br/min (04/09/21 5:44 PM) Temperature [96.8-100.4 DegF] 98.1 DegF (04/09/21 5:44 PM) Mode of Delivery (Oxygen) Room air (04/09/21 5:44 PM) Blood pressure sites Arm, left Arm, left (04/09/21 5:46 PM) (04/09/21 5:44 PM) Temperature Route Oral (04/09/21 5:44 PM) Dry Weight 167 kg 167 kg (04/09/21 5:46 PM) (04/09/21 5:44 PM) Social History Social History Type Response Smoking Status Never (less than 100 in life time) entered on: 12/27/20 Sex
--- OUTSIDE RECORDS SUMMARY | 2022-01-25 13:55 | XMS_ITS | Continuity of Care Document ---
:1960 Author Organization [facility] Address [address] [place] [address]- Care Team Providers Name Role Phone Fan MEZA ([facility] [place]), Tho Thorne Primary Care Physician [phone] Encounter [facility] Date(s): 11/16/20 - 01/19/[address] [address]- Attending Physician: Jenifer Laureano NP Allergies, Adverse Reactions, Alerts Substance Reaction Severity Status NKA Active Problem List Condition Effective Dates Status Health Status Informant Hyperlipidemia(Confirmed) Active Hypertension(Confirmed) Active Hypothyroidism(Confirmed) Active Morbid obesity(Confirmed) Active Social History Social History Type Response Smoking Status Never (less than 100 in life time) entered on: 12/27/20 Sex
--- OUTSIDE RECORDS SUMMARY | 2022-01-25 13:55 | XMS_ITS ---
:1960 Author Care Team Providers Name Role Phone FLOR GARAY SOUS [employer]NAGER-C Primary Care Provider [phone] NISHI CALLOWAY OD Commercial Food Instructor [phone] Allergies Code Code System Name Reaction Severity Status Onset NKDA ? Medications Name Status Start Date Stop Date ? ? allopurinol 100 mg tabs Active ? Not avai lable aspirin 81 mg tablet,delayed release Active ? Not available Take 1 tablet every day by oral route. atorvastatin calcium 80 mg tabs Active ? Not available Atrovent HFA 17 mcg/actuation aerosol inhaler Active ? Not available Inhale 2 puffs by inhalation route as needed. Banophen 50 mg capsule Active ? Not avail able Take 2 capsules every day by oral route at bedtime. clonazepam 0.5 mg tabs Active ? Not avail able clonazepam 1 mg tabs Completed ? 09/25/2017 clotrimazole 1 % crea Completed ? 09/25/2017 clotrimazole/betamethasone dipropionate 1-0.05 % crea Completed ? 09/25/2017 desloratadine 5 mg tabs Active ? Not avai lable doxycycline hyclate 100 mg caps Completed ? 09/25/2017 eliquis 5 mg tabs Active ? Not available fluticasone propionate 50 mcg/act susp Completed ? 09/25/2017 gabapentin 300 mg caps Active ? Not avail able hydrocodone/acetaminophen 5-325 mgtabs Completed ? 09/25/2017 ibuprofen 800 mg tabs Completed ? 09/25/2017 levothyroxine sodium 75 mcg tabs Active ? Not available lisinopril 20 mg tabs Active ? Not availa ble metformin hcl er 500 mg tb24 Completed ? metformin hydrochloride er 500 mg tb24 Active ? Not available mirtazapine 30 mg tabs Active ? Not avail able nystatin/triamcinolone 500554-7.1 unit/gm-% crea Completed ? 09/25/2017 polymyxin b sulfate/trimethoprim sulfate 18581-2.1 Completed ? 01/23/2018 unit/ml-% soln Polytrim 10,000 unit-1 mg/mL eye drops Completed ? 01/23/2018 INSTILL 1 DROP INTO AFFECTED EYE(S) BY OPHTHALMIC ROUTE EVERY 3 HOURS WHILE AWAKE FOR 7 TO 10 DAYS. Probiotic Active ? Not available propranolol hcl er 80 mg cp24 Active ? No t available quetiapine fumarate 100 mg tabs Active ? Not available quetiapine fumarate 300 mg tabs Active ? Not available quetiapine fumarate er 300 mg tb24 Completed ? 01/23/2018 ranitidine hcl 150 mg tabs Active ? Not a vailable tramadol hcl 50 mg tabs Completed ? 01/24/20 18 Notes: o2 at HS PRN Problems Name Status Onset Date Source ? Diabetes Mellitus Active 09/25/2017 ? Depressive Disorder Active 09/25/2017 ? Sarcoidosis Active 01/23/2018 ? Hypertensive Disorder Active ? ? Notes: removal of thyroid in 2017 Procedures None recorded. Results Lab Results None recorded. Past Encounters None recorded. Social History Tobacco Smoking Status Never Smoker Vaccine List None recorded. Plan of Care Reminders Provider Appointments None recorded. ? ? Lab None recorded. ? ? Referral None recorded. ? ? Procedures None recorded. ? ? Surgeries None recorded. ? ? Imaging None recorded. ? ? Vitals 01/23/2018 12:00PM Vision Routine Exam - 60 mins. Blood Pressure 118/81 mm[Hg] 09/25/2017 12:00PM Vision Establish Routine 30 Blood Pressure 117/81 mm[Hg]
--- OUTSIDE RECORDS SUMMARY | 2022-01-25 13:55 | XMS_ITS | Continuity of Care Document ---
:1960 Author Organization [facility] Address [address] [place] [address]- Care Team Providers Name Role Phone Fan MEZA ([facility]), Tho Thorne Primary Care Physician Encounter [facility] Date(s): 11/30/21 - 12/30/21 [facility] [address] [place], [place] [address] Attending Physician: Dina Suazo Admitting Physician: AdmtrDina Referring Physician: Admtr, Ar8 Allergies, Adverse Reactions, Alerts No Known Allergies Immunizations Given and Recorded Vaccine Date Status Refusal Reason SARS-CoV-2 (COVID-19) mRNA-1273 vaccine 04/10/21 Recorded influenza virus vaccine, inactivated 01/17/21 Recorded Medications allopurinol 100 mg oral tablet 200 mg, 2, tablet, By Mouth, Daily, # 60 tablet, Refills 0, Tot. Refills 0, Maintenance, 06/09/21 11:10:00 EST, Route to Pharmacy Electronically, [email or web address] #[id number], Partial fill upon patient request if the prescription is for a schedule II o... Start Date: 06/09/21 Stop Date: 07/09/21 Status: Orderedaspirin 81 mg oral delayed release tablet 81 mg, By Mouth, Daily, # 30 tablet, Refills 0, Tot. Refills 0, Maintenance, 06/09/21 11:10:00 EST, Route to Pharmacy Electronically, [email or web address] #[id number], Partial fill upon patient request if the prescription is for a schedule II opioid drug.,... Start Date: 06/09/21 Stop Date: 07/09/21 Status: Orderedatorvastatin 80 mg oral tablet 1 tablet, By Mouth, Daily at bedtime, # 90 tablet, 1 Refills, 08/30/21 17:01:00 EDT, [email or web address] #[id number], 183, cm, 08/30/21 13:45:00 EDT, Height, 160, kg, 06/15/21 15:18:00 EST, Dry Weight Start Date: 08/30/21 Status: Orderedcholecalciferol 1000 intl units oral tablet 2 tablet = 50 mcg, By Mouth, Daily, # 60 tablet, 5 Refills, Maintenance, 08/23/21 15:53:00 EDT, Tablet, [email or web address] #[id number], Partial fill upon patient request if the prescription is for a schedule II opioid drug., 183, cm, 06/15/21 15:18:00 ES... Start Date: 08/23/21 Stop Date: 02/19/22 Status: OrderedclonazePAM 0.5 mg oral tablet 1 tablet, By Mouth, Daily at bedtime, # 30 tablet, 3 Refills, Maintenance, 12/06/21 14:16:00 EDT, [email or web address] #[id number], 183, cm, 11/27/21 22:25:00 EDT, Height, 152, kg, 11/27/21 22:25:00 EDT, Dry Weight Start Date: 12/06/21 Stop Date: 04/05/22 Status: Ordereddesloratadine 5 mg oral tablet 1 tablet = 5 mg, By Mouth, Daily, # 30 tablet, 5 Refills, Maintenance, 11/14/21 12:18:00 EDT, Tablet, [email or web address] #[id number], Partial fill upon patient request if the prescription is for a schedule II opioid drug., 183, cm, 08/30/21 13:45:00 EDT,... Start Date: 11/14/21 Status: Orderedfamotidine 20 mg oral tablet 20 mg, 1, tablet, By Mouth, 2 times a day, # 60 tablet, Refills 0, Tot. Refills 0, Maintenance, 06/09/21 11:10:00 EST, Route to Pharmacy Electronically, [email or web address] #[id number], Partial fill upon patient request if the prescription is for a schedu... Start Date: 06/09/21 Stop Date: 07/09/21 Status: Orderedgabapentin 600 mg oral tablet 1 tablet = 600 mg, By Mouth, 3 times a day, # 42 tablet, 2 Refills, Maintenance, 06/09/21 11:11:00 EST, Tablet, [email or web address] #[id number], Partial fill upon patient request if the prescription is fora schedule II opioid drug., 183tony, 06/09/21 8:4... Start Date: 06/09/21 Stop Date: 07/21/21 Status: Orderedlevothyroxine 75 mcg (0.075 mg) oral tablet = 75 mcg, By Mouth, Daily before breakfast, # 30 tablet, 5 Refills, Maintenance, 09/28/21 8:23:00 EDT, Tablet, [email or web address] #[id number], Partial fill upon patient request if the prescription is for a schedule II opioid drug., 183tony, 08/30/21 13:4... Start Date: 09/28/21 Stop Date: 03/27/22 Status: Orderedlisinopril 20 mg oral tablet 20 mg, 1, tablet, By Mouth, Daily, # 30 tablet, Refills 0, Tot. Refills 0, Maintenance, 06/09/21 11:11:00 EST, Route to Pharmacy Electronically, [email or web address] #[id number], Partial fill upon patient request if the prescription is for a schedule II op... Start Date: 06/09/21 Stop Date: 07/09/21 Status: Orderedmetoprolol 50 mg oral tablet, extended release 50 mg, 1, tablet, By Mouth, Daily, # 30 tablet, Refills 0, Tot. Refills 0, Maintenance, 08/30/21 14:01:00 EDT, Route to Pharmacy Electronically, [email or web address] #[id number], Partial fill upon patient request if the prescription is for a schedule II op... Start Date: 08/30/21 Stop Date: 09/29/21 Status: Orderedmirtazapine 30 mg oral tablet 1 tablet = 30 mg, By Mouth, Daily at bedtime, # 90 tablet, 0 Refills, Maintenance, 12/05/21 15:14:00EDT, Tablet, [facility] #[id number], Partial fill upon patient request if the prescription is for a schedule II opioid drug., 183tony, 11/27/21 2... Start Date: 12/05/21 Stop Date: 03/05/22 Status: OrderedQUEtiapine 100 mg oral tablet 100 mg, 1, tablet, By Mouth, Daily in AM, for 90 days, # 90 tablet, Refills 0, Tot. Refills 0, Physician Stop 03/05/22 15:15:00 EST, 12/05/21 15:15:00 EDT, Route to Pharmacy Electronically, [email or web address] #[id number], 183, cm, 11/27/21 22:25:00 EDT,... Start Date: 12/05/21 Stop Date: 03/05/22 Status: OrderedSEROquel 300 mg oral tablet 1 tablet = 300 mg, By Mouth, Daily at bedtime, for 30 days, # 30 tablet, 2 Refills, Hard Stop 01/05/22 11:11:00 EDT, 10/07/21 11:11:00 EDT, Tablet, [email or web address] #[id number], Partial fill upon patient request if the prescription is for a schedule II... 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, currently mild(Confirmed) Homelessness(Confirmed) Active Hyperlipidemia(Confirmed) Active Hypertension(Confirmed) Active Hypothyroidism(Confirmed) Active Interpersonal problem(Confirmed) Active Morbid obesity(Confirmed) Active Severe obesity(Confirmed) Active Suicidal ideations(Confirmed) Active Social History Social History Type Response Smoking Status Never (less than 100 in life time) entered on: 12/27/20 Sex Care Team PersonnelName: Fan MEZA ([facility] [place]), Tho Thorne Address: [address] [place] [address] Care, [place], [place] [address]
--- OUTSIDE RECORDS SUMMARY | 2022-01-25 13:55 | XMS_ITS | Continuity of Care Document ---
:1960 Author Organization [facility] Address [address] [place] [address]- Care Team Providers Name Role Phone Fan MEZA ([facility]), Tho Thorne Primary Care Physician Encounter [facility] Date(s): 11/27/21 - 11/27/[address] [address]- Discharge Disposition: A-D/C Home Attending Physician: Waqas Stone MD Admitting Physician: Waqas Stone MD Referring Physician: Not on Staff, Referring [...] 06/09/21 11:10:00 EST, Route to Pharmacy Electronically, [facility] #[id number], Partial fill upon patient request if the prescription is for a schedule II o... Start Date: 06/09/21 Stop Date: 07/09/21 Status: Orderedaspirin 81 mg oral delayed release tablet 81 mg, By Mouth, Daily, # 30 tablet, Refills 0, Tot. Refills 0, Maintenance, 06/09/21 11:10:00 EST, Route to Pharmacy Electronically, [facility] #[id number], Partial fill upon patient request if the prescription is for a schedule II opioid drug.,... Start Date: 06/09/21 Stop Date: 07/09/21 Status: Orderedfamotidine 20 mg oral tablet 20 mg, 1, tablet, By Mouth, 2 times a day, # 60 tablet, Refills 0, Tot. Refills 0, Maintenance, 06/09/21 11:10:00 EST, Route to Pharmacy Electronically, [facility] #[id number], Partial fill upon patient request if the prescription is for a schedu... Start Date: 06/09/21 Stop Date: 07/09/21 Status: Orderedgabapentin 600 mg oral tablet 1 tablet = 600 mg, By Mouth, 3 times a day, # 42 tablet, 2 Refills, Maintenance, 06/09/21 11:11:00 EST, Tablet, [facility] #[id number], Partial fill upon patient request if the prescription is fora schedule II opioid drug., 183, cm, 06/09/21 8:4... Start Date: 06/09/21 Stop Date: 07/21/21 Status: Orderedlisinopril 20 mg oral tablet 20 mg, 1, tablet, By Mouth, Daily, # 30 tablet, Refills 0, Tot. Refills 0, Maintenance, 06/09/21 11:11:00 EST, Route to Pharmacy Electronically, [facility] #[id number], Partial fill upon patient request if the [...] to oldest 1 2 3 [Reference Range]: Height 183 cm 183 cm (11/27/21 10:25 PM) (11/27/21 4:07 PM) Weight 152 kg 152 kg (11/27/21 10:25 PM) (11/27/21 4:07 PM) Oxygen Saturation [94-100 %] 96 % 98 % 100 % (11/27/21 10:25 PM) (11/27/21 7:00 PM) (11/27/21 4: 07 PM) Pulse Rate [55-90 bpm] 67 bpm 85 bpm 97 bpm (11/27/21 10:25 PM) (11/27/21 7:00 PM) *H* (11/27/21 4:07 PM ) Body Mass Index [18.5-24.99] 45.39 *>HHI* (11/27/21 10:25 PM) Blood Pressure [90-138/55-84 118/74 mm Hg 108/70 mm Hg 133 /89 mm Hg mm Hg] (11/27/21 10:25 PM) (11/27/21 7:00 PM) (11/27/21 4: 07 PM) Respiratory Rate [16-30 17 br/min 18 br/min 20 br/mi n br/min] (11/27/21 10:25 PM) (11/27/21 7:00 PM) (11/27/21 4: 07 PM) Temperature [96.8-100.4 DegF] 98.3 DegF 97.8 DegF 98 DegF (11/27/21 10:25 PM) (11/27/21 7:00 PM) (11/27/21 4: 07 PM) Mode of Delivery (Oxygen) Room air Room air Room a ir (11/27/21 10:25 PM) (11/27/21 7:00 PM) (11/27/21 4: 07 PM) Blood pressure sites Arm, right (11/27/21 4:07 PM) Temperature Route Oral Temporal Temporal (11/27/21 10:25 PM) (11/27/21 7:00 PM) (11/27/21 4: 07 PM) Dry Weight 152 kg 152 kg (11/27/21 10:25 PM) (11/27/21 4:07 PM) Dry Weight Obtained Via Standing scale (11/27/21 4:07 PM) Social History Social History Type Response Smoking Status Never (less than 100 in life time) entered on: 12/27/20 Sex
--- OUTSIDE RECORDS SUMMARY | 2022-01-25 13:55 | XMS_ITS | Continuity of Care Document ---
:1960 Author Organization [facility] Address [address] [place] [address]- Care Team Providers Name Role Phone Fan MEZA (Psychiatric), Tho Thorne Primary Care Physician Encounter [facility] Date(s): 05/11/21 - 05/11/[address] [address]- Discharge Disposition: A-D/C Home Attending Physician: Andrés Coronel MD Admitting Physician: Andrés Coronel MD Referring Physician: Not on Staff, Referring MD Allergies, Adverse Reactions, Alerts Substance Reaction Severity Status NKA Active Immunizations Given and Recorded Vaccine Date Status Refusal Reason SARS-CoV-2 (COVID-19) mRNA-1273 vaccine 04/10/21 Recorded influenza virus vaccine, inactivated 01/17/21 Recorded Medications No Known Medications Problem List Condition Effective Dates Status Health Status Informant Aneurysm of aorta(Confirmed) Active Hyperlipidemia(Confirmed) Active Hypertension(Confirmed) Active Hypothyroidism(Confirmed) Active Morbid obesity(Confirmed) Active Severe obesity(Confirmed) Active Results Radiology Reports Exam Date Time Procedure Performing Provider Status 05/11/21 8:01 PM Chest 2 Views Frontal and Lat Zunilda Delacruz; Auth (Verified) Notes:(Chest 2 Views Frontal and Lat) Reason For Exam: Shortness of Breath RESULT: Chest 2 Views Frontal and Lat Chest 2 Views Frontal and Lat Hx of Present Illness: intermittent CP x 2 days, worse while working- lifts heavy wood, took baby aspirin last night and this morning w come relief in pain, SOB w exertion, pt reports hardening of leftartery, denies n v d, nonproductive cough, covid vaccinated; Reason: Shortness of Breath; Clinical Question(s): CHF COMPARISON: 01/11/2009 FINDINGS: LINES AND TUBES: None. LUNGS AND PLEURA: Hyperinflated lungs without consolidation or overt pulmonary edema. No pleural effusion. No pneumothorax. HEART, MEDIASTINUM AND GRAZYNA: Heart is normal in size. Normal upper mediastinal and hilar contour. BONES AND SOFT TISSUES: No acute abnormality. IMPRESSION: No acute abnormality. WSN: [id number] Ordering Physician: Andrés Coronel Dictated By: Noé Boss MD Dictated Date/Time: 05/11/21 8:05 pm Reviewed By: Noé Boss MD Signed By: Noé Boss MD Signed Date/Time: 05/11/21 8:05 pm Transcribed By: TREVA Transcribed Date/Time: 05/11/21 8:04 pm Vital Signs Most recent to oldest 1 2 3 [Reference Range]: Height 183 cm 183 cm 183 cm (05/11/21 9:31 PM) (05/11/21 7:54 PM) (05/11/21 5:5 5 PM) Weight 160.4 kg 160.4 kg 160.4 kg (05/11/21 7:54 PM) (05/11/21 5:55 PM) (05/11/21 5:3 2 PM) Oxygen Saturation [94-100 100 % 99 % 97 % %] (05/11/21 9:31 PM) (05/11/21 7:54 PM) (05/11/21 5:5 5 PM) Pulse Rate [55-90 bpm] 80 bpm 75 bpm 88 bpm (05/11/21 9:31 PM) (05/11/21 7:54 PM) (05/11/21 5:5 5 PM) Body Mass Index 47.9 47.9 [18.5-24.99] *>HHI* *>HHI* (05/11/21 7:54 PM) (05/11/21 5:55 PM) Blood Pressure 136/89 mm Hg 137/73 mm Hg [90-138/55-84 mm Hg] (05/11/21 9:31 PM) (05/11/21 5:32 PM) Respiratory Rate [16-30 20 br/min 15 br/min 22 br/mi n br/min] (05/11/21 7:54 PM) *L* (05/11/21 5:32 PM) (05/11/21 5:55 PM) Temperature [96.8-100.4 98.2 DegF 97.8 DegF 95.5 Deg F DegF] (05/11/21 9:31 PM) (05/11/21 5:55 PM) *L* (05/11/21 5:32 PM ) Mode of Delivery (Oxygen) Room air Room air Room a ir (05/11/21 9:31 PM) (05/11/21 7:54 PM) (05/11/21 5:5 5 PM) Blood pressure sites Arm, left Arm, left (05/11/21 9:31 PM) (05/11/21 5:32 PM) Temperature Route Oral Oral Oral (05/11/21 9:31 PM) (05/11/21 5:55 PM) (05/11/21 5:3 2 PM) Dry Weight 160.4 kg 160.4 kg 160.4 kg (05/11/21 7:54 PM) (05/11/21 5:55 PM) (05/11/21 5:3 2 PM) Weight Obtained Via Patient/family stated (05/11/21 5:32 PM) Social History Social History Type Response Smoking Status Never (less than 100 in life time) entered on: 12/27/20 Sex
--- OUTSIDE RECORDS SUMMARY | 2022-01-25 13:55 | XMS_ITS | Continuity of Care Document ---
:1960 Author Organization [facility] Address [address] [place] [address]- Care Team Providers Name Role Phone Fan MEZA ([facility]), Tho Thorne Primary Care Physician [facility] Date(s): 12/14/21 - 12/29/21 [facility] [address] [place] [address]- Discharge Disposition: A-D/C Home Attending Physician: Maurice Infante MD Admitting Physician: Maurice Infante MD Referring Physician: Not on Staff, Referring [...] 06/09/21 11:10:00 EST, Route to Pharmacy Electronically, [facility] #[id number], Partial fill upon patient request if the prescription is for a schedule II o... Start Date: 06/09/21 Stop Date: 07/09/21 Status: Orderedaspirin 81 mg oral delayed release tablet 81 mg, By Mouth, Daily, # 30 tablet, Refills 0, Tot. Refills 0, Maintenance, 06/09/21 11:10:00 EST, Route to Pharmacy Electronically, [facility] #[id number], Partial fill upon patient request if the prescription is for a schedule II opioid drug.,... Start Date: 06/09/21 Stop Date: 07/09/21 Status: Orderedatorvastatin 80 mg oral tablet 1 tablet, By Mouth, Daily at bedtime, # 90 tablet, 1 Refills, 08/30/21 17:01:00 EDT, [facility] #[id number], 183, cm, 08/30/21 13:45:00 EDT, Height, 160, kg, 06/15/21 15:18:00 EST, Dry Weight Start Date: 08/30/21 Status: Orderedcholecalciferol 1000 intl units oral tablet 2 tablet = 50 mcg, By Mouth, Daily, # 60 tablet, 5 Refills, Maintenance, 08/23/21 15:53:00 EDT, Tablet, [facility] #[id number], Partial fill upon patient request if the prescription is for a schedule II opioid drug., 183, cm, 06/15/21 15:18:00 ES... Start Date: 08/23/21 Stop Date: 02/19/22 Status: OrderedclonazePAM 0.5 mg oral tablet 1 tablet, By Mouth, Daily at bedtime, # 30 tablet, 3 Refills, Maintenance, 12/06/21 14:16:00 EDT, [facility] #[id number], 183, cm, 11/27/21 22:25:00 EDT, Height, 152, kg, 11/27/21 22:25:00 EDT, Dry Weight Start Date: 12/06/21 Stop Date: 04/05/22 Status: Ordereddesloratadine 5 mg oral tablet 1 tablet = 5 mg, By Mouth, Daily, # 30 tablet, 5 Refills, Maintenance, 11/14/21 12:18:00 EDT, Tablet, [facility] #[id number], Partial fill upon patient request if the prescription is for a schedule II opioid drug., 183, cm, 08/30/21 13:45:00 EDT,... Start Date: 11/14/21 Status: Orderedfamotidine 20 mg oral tablet 20 mg, 1, tablet, By Mouth, 2 times a day, # 60 tablet, Refills 0, Tot. Refills 0, Maintenance, 06/09/21 11:10:00 EST, Route to Pharmacy Electronically, [facility] #[id number], Partial fill upon patient request if the prescription is for a schedu... Start Date: 06/09/21 Stop Date: 07/09/21 Status: Orderedgabapentin 300 mg oral capsule 600 mg, Capsule, By Mouth, 12/29/21 9:00:00 EDT Start Date: 12/29/21 Stop Date: 12/29/21 Status: Completedgabapentin 600 mg oral tablet 1 tablet = 600 mg, By Mouth, 3 times a day, # 42 tablet, 2 Refills, Maintenance, 06/09/21 11:11:00 EST, Tablet, [facility] #[id number], Partial fill upon patient request if the prescription is fora schedule II opioid drug., 183, cm, 06/09/21 8:4... Start Date: 06/09/21 Stop Date: 07/21/21 Status: Orderedlevothyroxine 75 mcg (0.075 mg) oral tablet = 75 mcg, By Mouth, Daily before breakfast, # 30 tablet, 5 Refills, Maintenance, 09/28/21 8:23:00 EDT, Tablet, [facility] #[id number], Partial fill upon patient request if the prescription is for a schedule II opioid drug., 183, cm, 08/30/21 13:4... Start Date: 09/28/21 Stop Date: 03/27/22 Status: Orderedlisinopril 20 mg oral tablet 20 mg, 1, tablet, By Mouth, Daily, # 30 tablet, Refills 0, Tot. Refills 0, Maintenance, 06/09/21 11:11:00 EST, Route to Pharmacy Electronically, [facility] #[id number], Partial fill upon patient request if the prescription is for a schedule II op... Start Date: 06/09/21 Stop Date: 07/09/21 Status: Orderedlisinopril 20 mg oral tablet 20 mg, Tablet, By Mouth, 12/29/21 9:00:00 EDT Start Date: 12/29/21 Stop Date: 12/29/21 Status: Completedmetoprolol 50 mg oral tablet, extended release 50 mg, 1, tablet, By Mouth, Daily, # 30 tablet, Refills 0, Tot. Refills 0, Maintenance, 08/30/21 14:01:00 EDT, Route to Pharmacy Electronically, [facility] #[id number], Partial fill upon patient request if the prescription is for a schedule II op... Start Date: 08/30/21 Stop Date: 09/29/21 Status: Orderedmetoprolol 50 mg oral tablet, extended release 50 mg, XL Tablet, By Mouth, 12/29/21 9:00:00 EDT Start Date: 12/29/21 Stop Date: 12/29/21 Status: Completedmirtazapine 30 mg oral tablet 1 tablet = 30 mg, By Mouth, Daily at bedtime, # 90 tablet, 0 Refills, Maintenance, 12/05/21 15:14:00EDT, Tablet, [facility] #[id number], Partial fill upon patient request if the prescription is for a schedule II opioid drug., 183, cm, 11/27/21 2... Start Date: 12/05/21 Stop Date: 03/05/22 Status: OrderedQUEtiapine 100 mg oral tablet 100 mg, 1, tablet, By Mouth, Daily in AM, for 90 days, # 90 tablet, Refills 0, Tot. Refills 0, Physician Stop 03/05/22 15:15:00 EST, 12/05/21 15:15:00 EDT, Route to Pharmacy Electronically, [facility] #[id number], 183, cm, 11/27/21 22:25:00 EDT,... Start Date: 12/05/21 Stop Date: 03/05/22 Status: OrderedSEROquel 300 mg oral tablet 1 tablet = 300 mg, By Mouth, Daily at bedtime, for 30 days, # 30 tablet, 2 Refills, Hard Stop 01/05/22 11:11:00 EDT, 10/07/21 11:11:00 EDT, Tablet, [facility] #[id number], Partial fill upon patient request if the [...] oldest 1 2 3 [Reference Range]: Height 182.88 cm 182.88 cm 182.88 cm (12/28/21 9:28 PM) (12/28/21 9:00 AM) (12/27/21 9:5 7 PM) Weight 155.8 kg 153.1 kg (12/21/21 12:21 PM) (12/14/21 6:05 PM) Oxygen Saturation [94-100 %] 20 % 98 % 98 % *L* (12/28/21 9:00 AM) (12/27/21 9:57 PM) (12/28/21 9:28 PM) Pulse Rate [55-90 bpm] 88 bpm 73 bpm 81 bpm (12/29/21 9:42 AM) (12/28/21 9:28 PM) (12/28/21 9:00 AM) Body Mass Index [18.5-24.99] 45.78 *>HHI* (12/14/21 6:05 PM) Blood Pressure [90-138/55-84 128/67 mm Hg 128/67 mm Hg 129 /86 mm Hg mm Hg] (12/29/21 9:42 AM) (12/29/21 9:42 AM) (12/28/21 9:28 PM) Respiratory Rate [16-30 16 br/min 16 br/min 16 br/mi n br/min] (12/29/21 11:35 AM) (12/29/21 10:00 AM) (12/29/21 9:42 AM) Temperature [96.8-100.4 DegF] 97.1 DegF 97.2 DegF 97 .1 DegF (12/28/21 9:28 PM) (12/28/21 9:00 AM) (12/27/21 9:5 7 PM) Mode of Delivery (Oxygen) Room air Room air Room a ir (12/28/21 9:00 AM) (12/27/21 9:10 AM) (12/26/21 3:5 0 PM) Blood pressure sites Arm, left Arm, left Arm, left (12/28/21 9:00 AM) (12/27/21 9:10 AM) (12/26/21 3:5 0 PM) Temperature Route Tympanic Temporal Tympanic (12/28/21 9:28 PM) (12/28/21 9:00 AM) (12/27/21 9:5 7 PM) Dry Weight 153.1 kg (12/14/21 6:05 PM) Social History Social History Type Response Smoking Status Never (less than 100 in life time) entered on: 12/27/20 Sex Care Team PersonnelName: Fan MEZA ([facility] Tho Thorne Address: [address] [place] [address]-
--- OUTSIDE RECORDS SUMMARY | 2022-01-25 13:55 | XMS_ITS | Continuity of Care Document ---
:1960 Author Organization [facility] Address [address] [place] [address]- Care Team Providers Name Role Phone Fan MEZA ([facility])Tho Primary Care Physician Encounter [facility] [id number] Date(s): 02/01/21 - 04/21/21 [facility] [address] [place] [address]- Attending Physician: Fan MEZA (RANDY Mcmillan)Tho Allergies, Adverse Reactions, Alerts Substance Reaction Severity Status NKA Active Problem List Condition Effective Dates Status Health Status Informant Hyperlipidemia(Confirmed) Active Hypertension(Confirmed) Active Hypothyroidism(Confirmed) Active Morbid obesity(Confirmed) Active Severe obesity(Confirmed) Active Social History Social History Type Response Smoking Status Never (less than 100 in life time) entered on: 12/27/20 Sex
--- OUTSIDE RECORDS SUMMARY | 2022-01-25 13:55 | XMS_ITS | Continuity of Care Document ---
:1960 Author Organization [facility] Address [address] [place] [address]- Care Team Providers Name Role Phone Jenifer Laureano NP Primary Care Physician Encounter [facility] Date(s): 12/19/20 - 12/19/[address] [address]- Discharge Disposition: A-D/C Home Attending Physician: Waqas Stone MD Admitting Physician: Waqas Stone MD Referring Physician: Not on Staff, Referring MD Allergies, Adverse Reactions, Alerts Substance Reaction Severity Status NKA Active Medications clonazePAM 0.5 mg oral tablet 1 tablet = 0.5 mg, By Mouth, 3 times a day, 0 Refills, Maintenance, 12/19/20 18:46:00 EDT, Partial fill upon patient request if the prescription is for a schedule II opioid drug. Start Date: 12/19/20 Status: OrderedclonazePAM 0.5 mg oral tablet 1 tablet = 0.5 mg, By Mouth, Daily at bedtime, for 7 days, # 7 tablet, 0 Refills, Acute 12/26/20 19:21:00 EDT, 12/19/20 19:21:00 EDT, Tablet, [facility] #[id number], Partial fill upon patient request if the prescription is for a schedule II opioi... Start Date: 12/19/20 Stop Date: 12/26/20 Status: Ordered Vital Signs Most recent to oldest [Reference Range]: 1 2 Height 183 cm 183 cm (12/19/20 6:48 PM) (12/19/20 6:41 PM) Weight 156.8 kg 156.8 kg (12/19/20 6:48 PM) (12/19/20 6:41 PM) Oxygen Saturation [94-100 %] 100 % (12/19/20 6:48 PM) Pulse Rate [55-90 bpm] 80 bpm (12/19/20 6:48 PM) Body Mass Index [18.5-24.99] 46.82 *>HHI* (12/19/20 6:48 PM) Blood Pressure [90-138/55-84 mm Hg] 123/108 mm Hg (12/19/20 6:48 PM) Respiratory Rate [16-30 br/min] 20 br/min (12/19/20 6:48 PM) Temperature [96.8-100.4 DegF] 98.2 DegF (12/19/20 6:48 PM) Mode of Delivery (Oxygen) Room air (12/19/20 6:48 PM) Blood pressure sites Arm, left (12/19/20 6:48 PM) Temperature Route Temporal (12/19/20 6:48 PM) Dry Weight 156.8 kg 156.8 kg (12/19/20 6:48 PM) (12/19/20 6:41 PM)
--- OUTSIDE RECORDS SUMMARY | 2022-01-25 13:55 | XMS_ITS | Continuity of Care Document ---
:1960 Author Organization [facility] Address [address] [place] [address]- Care Team Providers Name Role Phone Fan MEZA ([facility]), Tho Thorne Primary Care Physician Encounter [facility] Date(s): 09/01/21 - 12/30/21 [facility] [address] [place] [address]- Attending Physician: Fan MEZA ([facility])Tho Allergies, Adverse Reactions, Alerts No Known Allergies Immunizations Given and Recorded Vaccine Date Status Refusal Reason SARS-CoV-2 (COVID-19) mRNA-1273 vaccine 04/10/21 Recorded influenza virus vaccine, inactivated 01/17/21 Recorded Medications allopurinol 100 mg oral tablet 200 mg, 2, tablet, By Mouth, Daily, # 60 tablet, Refills 0, Tot. Refills 0, Maintenance, 06/09/21 11:10:00 EST, Route to Pharmacy Electronically, [facility] #[id number], Partial fill upon patient request if the prescription is for a schedule II o... Start Date: 06/09/21 Stop Date: 07/09/21 Status: Orderedaspirin 81 mg oral delayed release tablet 81 mg, By Mouth, Daily, # 30 tablet, Refills 0, Tot. Refills 0, Maintenance, 06/09/21 11:10:00 EST, Route to Pharmacy Electronically, [facility] #[id number], Partial fill upon patient request if the prescription is for a schedule II opioid drug.,... Start Date: 06/09/21 Stop Date: 07/09/21 Status: Orderedatorvastatin 80 mg oral tablet 1 tablet, By Mouth, Daily at bedtime, # 90 tablet, 1 Refills, 08/30/21 17:01:00 EDT, [facility] #[id number], 183, cm, 08/30/21 13:45:00 EDT, Height, 160, kg, 06/15/21 15:18:00 EST, Dry Weight Start Date: 08/30/21 Status: Orderedcholecalciferol 1000 intl units oral tablet 2 tablet = 50 mcg, By Mouth, Daily, # 60 tablet, 5 Refills, Maintenance, 08/23/21 15:53:00 EDT, Tablet, [facility] #[id number], Partial fill upon patient request if the prescription is for a schedule II opioid drug., 183, cm, 06/15/21 15:18:00 ES... Start Date: 08/23/21 Stop Date: 02/19/22 Status: OrderedclonazePAM 0.5 mg oral tablet 1 tablet, By Mouth, Daily at bedtime, # 30 tablet, 3 Refills, Maintenance, 12/06/21 14:16:00 EDT, [facility] #[id number], 183, cm, 11/27/21 22:25:00 EDT, Height, 152, kg, 11/27/21 22:25:00 EDT, Dry Weight Start Date: 12/06/21 Stop Date: 04/05/22 Status: Ordereddesloratadine 5 mg oral tablet 1 tablet = 5 mg, By Mouth, Daily, # 30 tablet, 5 Refills, Maintenance, 11/14/21 12:18:00 EDT, Tablet, [facility] #[id number], Partial fill upon patient request if the prescription is for a schedule II opioid drug., 183, cm, 08/30/21 13:45:00 EDT,... Start Date: 11/14/21 Status: Orderedfamotidine 20 mg oral tablet 20 mg, 1, tablet, By Mouth, 2 times a day, # 60 tablet, Refills 0, Tot. Refills 0, Maintenance, 06/09/21 11:10:00 EST, Route to Pharmacy Electronically, [facility] #[id number], Partial fill upon patient request if the prescription is for a schedu... Start Date: 06/09/21 Stop Date: 07/09/21 Status: Orderedgabapentin 600 mg oral tablet 1 tablet = 600 mg, By Mouth, 3 times a day, # 42 tablet, 2 Refills, Maintenance, 06/09/21 11:11:00 EST, Tablet, [facility] #[id number], Partial fill upon patient request if the prescription is fora schedule II opioid drug., tony Richardson, 06/09/21 8:4... Start Date: 06/09/21 Stop Date: 07/21/21 Status: Orderedlevothyroxine 75 mcg (0.075 mg) oral tablet = 75 mcg, By Mouth, Daily before breakfast, # 30 tablet, 5 Refills, Maintenance, 09/28/21 8:23:00 EDT, Tablet, [facility] #[id number], Partial fill upon patient request if the prescription is for a schedule II opioid drug., tony Richardson, 08/30/21 13:4... Start Date: 09/28/21 Stop Date: 03/27/22 Status: Orderedlisinopril 20 mg oral tablet 20 mg, 1, tablet, By Mouth, Daily, # 30 tablet, Refills 0, Tot. Refills 0, Maintenance, 06/09/21 11:11:00 EST, Route to Pharmacy Electronically, [facility] #[id number], Partial fill upon patient request if the prescription is for a schedule II op... Start Date: 06/09/21 Stop Date: 07/09/21 Status: Orderedmetoprolol 50 mg oral tablet, extended release 50 mg, 1, tablet, By Mouth, Daily, # 30 tablet, Refills 0, Tot. Refills 0, Maintenance, 08/30/21 14:01:00 EDT, Route to Pharmacy Electronically, [facility] #[id number], Partial fill upon patient request if the prescription is for a schedule II op... Start Date: 08/30/21 Stop Date: 09/29/21 Status: Orderedmirtazapine 30 mg oral tablet 1 tablet = 30 mg, By Mouth, Daily at bedtime, # 90 tablet, 0 Refills, Maintenance, 12/05/21 15:14:00EDT, Tablet, [facility] #[id number], Partial fill upon patient request if the prescription is for a schedule II opioid drug., tony Richardson, 11/27/21 2... Start Date: 12/05/21 Stop Date: 03/05/22 Status: OrderedQUEtiapine 100 mg oral tablet 100 mg, 1, tablet, By Mouth, Daily in AM, for 90 days, # 90 tablet, Refills 0, Tot. Refills 0, Physician Stop 03/05/22 15:15:00 EST, 12/05/21 15:15:00 EDT, Route to Pharmacy Electronically, [facility] #[id number], 183, cm, 11/27/21 22:25:00 EDT,... Start Date: 12/05/21 Stop Date: 03/05/22 Status: OrderedSEROquel 300 mg oral tablet 1 tablet = 300 mg, By Mouth, Daily at bedtime, for 30 days, # 30 tablet, 2 Refills, Hard Stop 01/05/22 11:11:00 EDT, 10/07/21 11:11:00 EDT, Tablet, [facility] #[id number], Partial fill upon patient request if the [...] Sex Care Team PersonnelName: Fan MEZA ([facility] [place]), Tho Thorne Address: [address] [place] [id number]
--- OUTSIDE RECORDS SUMMARY | 2022-01-25 13:55 | XMS_ITS | Continuity of Care Document ---
:1960 Author Organization [facility] Address [address] [place] [address]- Care Team Providers Name Role Phone Fan MEZA (RANDY - )Tho Primary Care Physician [phone] Encounter [facility] [id number] Date(s): 12/27/20 - 03/03/21 [facility] [address] [place] [address]- Attending Physician: Fan MEZA (RANDY Mcmillan)Tho Allergies, Adverse Reactions, Alerts Substance Reaction Severity Status NKA Active Problem List Condition Effective Dates Status Health Status Informant Hyperlipidemia(Confirmed) Active Hypertension(Confirmed) Active Hypothyroidism(Confirmed) Active Morbid obesity(Confirmed) Active Social History Social History Type Response Smoking Status Never (less than 100 in life time) entered on: 12/27/20 Sex
--- OUTSIDE RECORDS SUMMARY | 2022-01-25 13:55 | XMS_ITS | Continuity of Care Document ---
:1960 Author Organization [facility] Address [address] [place] [address]- Care Team Providers Name Role Phone Fan MEZA ([facility])Tho Primary Care Physician [phone] Encounter [facility] Date(s): 12/13/21 - 12/14/[address] [address]- Discharge Disposition: Transferred to short-term general hospit Attending Physician: Galo Campa DO Admitting Physician: Galo Campa DO Referring Physician: Not on Staff, Referring MD [...] 06/09/21 11:10:00 EST, Route to Pharmacy Electronically, [facility] #[id number], Partial fill upon patient request if the prescription is for a schedule II o... Start Date: 06/09/21 Stop Date: 07/09/21 Status: Orderedaspirin 81 mg oral delayed release tablet 81 mg, By Mouth, Daily, # 30 tablet, Refills 0, Tot. Refills 0, Maintenance, 06/09/21 11:10:00 EST, Route to Pharmacy Electronically, [facility] #[id number], Partial fill upon patient request if the prescription is for a schedule II opioid drug.,... Start Date: 06/09/21 Stop Date: 07/09/21 Status: Orderedfamotidine 20 mg oral tablet 20 mg, 1, tablet, By Mouth, 2 times a day, # 60 tablet, Refills 0, Tot. Refills 0, Maintenance, 06/09/21 11:10:00 EST, Route to Pharmacy Electronically, [facility] #[id number], Partial fill upon patient request if the prescription is for a schedu... Start Date: 06/09/21 Stop Date: 07/09/21 Status: Orderedgabapentin 300 mg oral capsule 600 mg, Capsule, By Mouth, 12/14/21 9:00:00 EDT Start Date: 12/14/21 Stop Date: 12/14/21 Status: Completedgabapentin 600 mg oral tablet 1 tablet = 600 mg, By Mouth, 3 times a day, # 42 tablet, 2 Refills, Maintenance, 06/09/21 11:11:00 EST, Tablet, [facility] #[id number], Partial fill upon patient request if the prescription is fora schedule II opioid drug., 183, cm, 06/09/21 8:4... Start Date: 06/09/21 Stop Date: 07/21/21 Status: Orderedlisinopril 20 mg oral tablet 20 mg, Tablet, By Mouth, 12/14/21 9:00:00 EDT Start Date: 12/14/21 Stop Date: 12/14/21 Status: Completedlisinopril 20 mg oral tablet 20 mg, 1, tablet, By Mouth, Daily, # 30 tablet, Refills 0, Tot. Refills 0, Maintenance, 06/09/21 11:11:00 EST, Route to Pharmacy Electronically, [facility] #[id number], Partial fill upon patient request if the prescription is for a schedule II op... 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, currently mild(Confirmed) Homelessness(Confirmed) Active Hyperlipidemia(Confirmed) Active Hypertension(Confirmed) Active Hypothyroidism(Confirmed) Active Interpersonal problem(Confirmed) Active Morbid obesity(Confirmed) Active Severe obesity(Confirmed) Active Vital Signs Most recent to oldest 1 2 3 [Reference Range]: Height 183 cm 183 cm 183 cm (12/14/21 6:04 AM) (12/13/21 10:26 PM) (12/13/21 7: 14 PM) Weight 156 kg 156 kg 156 kg (12/14/21 6:04 AM) (12/13/21 10:26 PM) (12/13/21 7: 14 PM) Oxygen Saturation [94-100 %] 96 % 98 % 97 % (12/14/21 6:04 AM) (12/13/21 10:26 PM) (12/13/21 7: 14 PM) Pulse Rate [55-90 bpm] 76 bpm 75 bpm 93 bpm (12/14/21 10:29 AM) (12/14/21 6:04 AM) *H* (12/13/21 10:26 P M) Body Mass Index [18.5-24.99] 46.58 46.58 *>HHI* *>HHI* (12/14/21 6:04 AM) (12/13/21 10:26 PM) Blood Pressure [90-138/55-84 134/80 mm Hg 133/81 mm Hg 129 /71 mm Hg mm Hg] (12/14/21 10:29 AM) (12/14/21 10:22 AM) (12/14/21 6 : AM) Respiratory Rate [16-30 18 br/min 15 br/min 18 br/mi n br/min] (12/14/21 11:21 AM) *L* (12/14/21 6:04 AM) (12/14/21 10:21 AM) Temperature [96.8-100.4 97.9 DegF 98.1 DegF DegF] (12/14/21 6:04 AM) (12/13/21 7:14 PM) Liters per Minute 0 L/min 0 L/min (12/14/21 6:04 AM) (12/13/21 10:26 PM) Mode of Delivery (Oxygen) Room air Room air Room a ir (12/14/21 6:04 AM) (12/13/21 10:26 PM) (12/13/21 7: 14 PM) Blood pressure sites Arm, left Arm, left (12/14/21 6:04 AM) (12/13/21 10:26 PM) Temperature Route Oral Oral (12/14/21 6:04 AM) (12/13/21 7:14 PM) Dry Weight 156 kg 156 kg 156 kg (12/14/21 6:04 AM) (12/13/21 10:26 PM) (12/13/21 7: 14 PM) Weight Obtained Via Standing scale (12/13/21 7:14 PM) Dry Weight Obtained Via Standing scale (12/13/21 7:14 PM) Social History Social History Type Response Smoking Status Never (less than 100 in life time) entered on: 12/27/20 Sex
== END 2022-01-13 12:00 | disposition home or self-care (01) | DRG 885 ==
PROVIDERS: Clinical Nurse Specialist Psychiatric/Mental Health, Adult; Psychiatry & Neurology Psychiatry; Admitting Provider Psychiatry & Neurology Psychiatry; PCP Nurse Practitioner Psychiatric/Mental Health; Visit Provider Psychiatry & Neurology Psychiatry
DX: F32.2 Major depressive disorder, single episode, severe without psychotic features (principal); R45.851 Suicidal ideations; Z68.42 Body mass index [BMI] 45.0-49.9, adult; E66.01 Morbid (severe) obesity due to excess calories; G56.21 Lesion of ulnar nerve, right upper limb; M10.9 Gout, unspecified; I10 Essential (primary) hypertension; E03.9 Hypothyroidism, unspecified; Z59.01 Sheltered homelessness; Z79.82 Long term (current) use of aspirin; Z79.890 Hormone replacement therapy; Z79.899 Other long term (current) drug therapy
CPT/HCPCS: 36415; 80053; 80061; 85025

== ENCOUNTER 2022-01-16 16:45 | Emergency (ER) | payer OTHER, SELFPAY ==
--- NOTE | ~2022-01-16 | XR_ITS ---
EXAMINATION: XR CHEST CLINICAL INFORMATION: Covid COMPARISON: None TECHNIQUE: Frontal view of the chest was obtained. FINDINGS: The lungs are well expanded. There is no focal consolidation, edema, or effusion. No pneumothorax. The cardiomediastinal silhouette is within normal limits. No acute osseous abnormality. Surgical clips overlie the mediastinum. XR/XR chest 1V IMPRESSION: Clear lungs.
[2022-01-16 16:54] VITALS: BP 116/85; PULSE 102; RESP 20; TEMP 37.7; O2SAT 97; BMI 44.3
--- NOTE | 2022-01-16 17:06 | ED.PSYCH ---
HPI - Psych General Chief Complaint: General Medical Stated Complaint: DIFF BREATHING/N/V/SI Time Seen by Provider: 01/16/22 17:06 Source: patient Mode of arrival: EMS Limitations: no limitations History of Present Illness HPI Narrative: Patient with history of depression was admitted upstairs discharge today woke up with nasal congestion cough feeling short of breath not feeling well missed his gabapentin for last 3 days feels suicidal with no plan want to see therapist no hallucination no delusion patient has been vaccinated with booster dose against COVID. Related Data Home Medications Medication Instructions Recorded Confirmed allopurinol 100 mg tablet 2 tab PO DAILY 01/16/22 01/16/22 atorvastatin 80 mg tablet 1 tab PO BEDTIME 01/16/22 01/16/22 clonazepam 0.5 mg tablet 1 tab PO BID PRN anxiety 01/16/22 01/16/22 famotidine 20 mg tablet 1 tab PO BID 01/16/22 01/16/22 gabapentin 600 mg tablet 1 tab PO TID 01/16/22 01/16/22 levothyroxine 75 mcg tablet 1 tab PO QAM 01/16/22 01/16/22 lisinopril 20 mg tablet 1 tab PO DAILY 01/16/22 01/16/22 mirtazapine 30 mg tablet 1 tab PO BEDTIME 01/16/22 01/16/22 quetiapine 100 mg tablet 1 tab PO QAM 01/16/22 01/16/22 quetiapine 300 mg tablet 1 tab PO BEDTIME 01/16/22 01/16/22 Previous Rx's Medication Instructions Recorded benzonatate 200 mg capsule 200 mg PO TID PRN cough #30 caps 01/17/22 Allergies Allergy/AdvReac Type Severity Reaction Status Date / Time No Known Allergies Allergy Verified 01/06/22 14:44 Review of Systems Review of Systems: Yes all other systems are reviewed and are negative [facility] Past Medical History Medical History Chronic gout GERD (gastroesophageal reflux disease) HTN (hypertension) Hypothyroidism Ulnar neuropathy Social History Social History Household Members: Family Household Members Other:: SISTER Housing: Other Housing Other:: STAYING ON SISTERS COUCH AT THE MOMENT-UNSTABLE HOUSING Do you presently have visiting nurse or other home services: No Patient Tobacco Use Status: Never used Tobacco Advance Directives: No Advance Directives Information Provided: No service: No Sexual orientation: Straight/Heterosexual Physical Exam Vital Signs: Vital Signs: Last Vital Signs Temp 99.0 F 01/16/22 23:46 Pulse 95 01/16/22 23:46 Resp 25 H 01/16/22 23:46 BP 125/79 01/16/22 23:46 Pulse Ox 98 01/16/22 23:46 O2 Del Method 01/16/22 23:46 BMI result Body Mass Index 44.3 Appearance: Alert. Oriented X3. No acute distress. Eyes: PERRLA, No Nystagmus ENT: Pharynx normal. Oral Mucosa moist Neck: Normal inspection. Neck supple. CVS: Normal heart rate and rhythm. Pulses normal. Respiratory: No respiratory distress. Equal air entry bilateral, no wheezing/rales/rhonchi Abdomen: Soft and nontender. Bowel sounds are present, no mass palpable, no CVA tenderness Skin: Skin warm and dry. Normal skin color. Normal skin turgor. Extremities: No lower extremity edema. No calf tenderness psych: Depressed feels suicidal no plan no hallucination no delusion Neuro: Oriented X 3. No motor deficit. No sensory deficit.No cerebellar signs , cranial nerves II-XII intact MDM - Psych MDM Narrative Medical decision making narrative: 230 Patient with COVID-19 with cough no hypoxia feels very anxious and scared for with increased depression get care team evaluation from the COVID point of view patient is medically cleared does not need any medication patient given 1 dose of Decadron in the ER along with the cough syrup Differential Diagnosis Differential diagnosis: Likely depression and acute anxiety Lab Data Attestation: I reviewed the patient's lab results. Result diagrams: 01/16/22 18:50 01/16/22 18:50 Labs: Lab Results 01/16/22 01/16/22 01/16/22 Range/Units 18:33 18:50 18:50 WBC 5.8 (4.8-10.8) X10*3/uL RBC 4.56 L (4.60-5.80) X10*6/uL Hgb 14.2 (14.0-18.0) g/dl Hct 43.5 (42.0-52.0) % MCV 95.4 (80.0-98.0) fL MCH 31.1 (27.0-33.0) pg MCHC 32.6 (31.0-36.0) g/dl RDW 13.2 (11.0-16.0) % Plt Count 133 L (160-400) X10*3/uL MPV 12.3 (9.4-12.4) fL Immature Gran % (Auto) 0.5 H (0.0-0.4) % Neut % (Auto) 71.3 (45-73) % Lymph % (Auto) 13.1 L (20-40) % [place] % (Auto) 13.8 H (2-11) % Eos % (Auto) 1.0 (0-4) % Baso % (Auto) 0.3 (0-2) % Lymph # (Auto) 0.8 L (1.2-4.9) X10*3/uL [place] # (Auto) 0.8 (0.1-1.2) X10*3/uL Eos # (Auto) 0.1 (0.0-0.4) X10*3/uL Baso # (Auto) 0.0 (0.0-0.2) X10*3/uL Abs Immat Gran (auto) 0.03 (0.00-0.03) X10*3/uL Absolute Neuts (auto) 4.1 (2.0-8.3) x10*3/uL Absolute Nucleated RBC 0.000 (0.0-0.012) X10*3/uL Nucleated RBC % (auto) 0.0 (0.0-0.2) /100WBC Sodium 138 (135-145) mmol/L Potassium 4.1 (3.3-5.1) mmol/L Chloride 102 (96-108) mmol/L Carbon Dioxide 26 (22-29) mmol/L Anion Gap 14 (12-20) BUN 13 (9-16) mg/dL Creatinine 0.77 (0.5-1.4) mg/dL Estim Creat Clear Calc 163.5 Estimated GFR > 60 Random Glucose 94 (60-115) mg/dL Calcium 8.8 (8.4-10.2) mg/dL Urine Color Urine Appearance Urine pH (5.0-9.0) Ur Specific [place] (1.005-1.025) Urine Protein (Neg-Trace) mg/dL Urine Glucose (UA) (Negative) mg/dL Urine Ketones (Negative) mg/dL Urine Blood (Negative) Urine Nitrite (Negative) Ur Leukocyte Esterase (Negative) Urine RBC (0-2) /HPF Urine WBC (0-5) /HPF Ur Squamous Epith Cells (0-2) /HPF Urine Bacteria (None Seen) Hyaline Casts (0-2) /LPF Urine Opiates Screen (Not Detect) Urine Fentanyl Screen (Not Detect) Ur Barbiturates Screen (Not Detect) Ur Phencyclidine Scrn (Not Detect) Ur Amphetamines Screen (Not Detect) U Benzodiazepines Scrn (Not Detect) Urine Cocaine Screen (Not Detect) U Marijuana (THC) Screen (Not Detect) COVID-19 (DARIAN) Positive A (Negative) COVID-19 Clin Com See Note 01/16/22 01/16/22 Range/Units 21:25 21:25 WBC (4.8-10.8) X10*3/uL RBC (4.60-5.80) X10*6/uL Hgb (14.0-18.0) g/dl Hct (42.0-52.0) % MCV (80.0-98.0) fL MCH (27.0-33.0) pg MCHC (31.0-36.0) g/dl RDW (11.0-16.0) % Plt Count (160-400) X10*3/uL MPV (9.4-12.4) fL Immature Gran % (Auto) (0.0-0.4) % Neut % (Auto) (45-73) % Lymph % (Auto) (20-40) % [place] % (Auto) (2-11) % Eos % (Auto) (0-4) % Baso % (Auto) (0-2) % Lymph # (Auto) (1.2-4.9) X10*3/uL [place] # (Auto) (0.1-1.2) X10*3/uL Eos # (Auto) (0.0-0.4) X10*3/uL Baso # (Auto) (0.0-0.2) X10*3/uL Abs Immat Gran (auto) (0.00-0.03) X10*3/uL Absolute Neuts (auto) (2.0-8.3) x10*3/uL Absolute Nucleated RBC (0.0-0.012) X10*3/uL Nucleated RBC % (auto) (0.0-0.2) /100WBC Sodium (135-145) mmol/L Potassium (3.3-5.1) mmol/L Chloride (96-108) mmol/L Carbon Dioxide (22-29) mmol/L Anion Gap (12-20) BUN (9-16) mg/dL Creatinine (0.5-1.4) mg/dL Estim Creat Clear Calc Estimated GFR Random Glucose (60-115) mg/dL Calcium (8.4-10.2) mg/dL Urine Color Yellow Urine Appearance Cloudy Urine pH 7.5 (5.0-9.0) Ur Specific [place] 1.025 (1.005-1.025) Urine Protein Negative (Neg-Trace) mg/dL Urine Glucose (UA) Negative (Negative) mg/dL Urine Ketones Negative (Negative) mg/dL Urine Blood Negative (Negative) Urine Nitrite Negative (Negative) Ur Leukocyte Esterase Trace H (Negative) Urine RBC 0-2 (0-2) /HPF Urine WBC 0-5 (0-5) /HPF Ur Squamous Epith Cells 0-2 (0-2) /HPF Urine Bacteria None Seen (None Seen) Hyaline Casts 0-2 (0-2) /LPF Urine Opiates Screen Not Detected (Not Detect) Urine Fentanyl Screen Not Detected (Not Detect) Ur Barbiturates Screen Not Detected (Not Detect) Ur Phencyclidine Scrn Not Detected (Not Detect) Ur Amphetamines Screen Not Detected (Not Detect) U Benzodiazepines Scrn Not Detected (Not Detect) Urine Cocaine Screen Not Detected (Not Detect) U Marijuana (THC) Screen Not Detected (Not Detect) COVID-19 (DARIAN) (Negative) COVID-19 Clin Com Discharge Plan Discharge Clinical Impression: Major depress dis, severe, COVID-19 Patient Disposition: Still a Patient Instructions: Depression (ED), COVID-19 (Coronavirus Disease 2019) (ED) Additional Instructions: Cough drops as advised Keep hydrated Report to the ER if increased shortness of breath Follow with a therapist andtake your depression medications Prescriptions: New benzonatate 200 mg capsule 200 mg PO TID PRN (Reason: cough) Qty: 30 0RF No Action atorvastatin 80 mg tablet 1 tab PO BEDTIME gabapentin 600 mg tablet 1 tab PO TID quetiapine 300 mg tablet 1 tab PO BEDTIME lisinopril 20 mg tablet 1 tab PO DAILY clonazepam 0.5 mg tablet 1 tab PO BID PRN (Reason: anxiety) quetiapine 100 mg tablet 1 tab PO QAM famotidine 20 mg tablet 1 tab PO BID mirtazapine 30 mg tablet 1 tab PO BEDTIME allopurinol 100 mg tablet 2 tab PO DAILY levothyroxine 75 mcg tablet 1 tab PO QAM
[2022-01-16 18:46] LABS: COVID-19 Test Positive (Negative); IDNOW Serial# 55D5AD1C
[2022-01-16 18:57] LABS: Basophils Percent Auto 0.3 % (0-2); Eosinophils Absolute Auto 0.1 X10*3/uL (0.0-0.4); Hematocrit 43.5 % (42.0-52.0); Hemoglobin 14.2 g/dl (14.0-18.0); Imm Gran Abs Auto 0.03 X10*3/uL (0.00-0.03); Imm Gran Pct Auto 0.5 % (0.0-0.4); Lymphocytes Absolute Auto 0.8 X10*3/uL (1.2-4.9); Lymphocytes Percent Auto 13.1 % (20-40); MANUAL DIFF FLAG NO; Mean Corpuscular HGB Conc 32.6 g/dl (31.0-36.0); Mean Corpuscular Hemoglobin 31.1 pg (27.0-33.0); Mean Corpuscular Volume 95.4 fL (80.0-98.0); Mean Platelet Volume 12.3 fL (9.4-12.4); Monocytes Absolute Auto 0.8 X10*3/uL (0.1-1.2); Monocytes Percent Auto 13.8 % (2-11); Neutrophils Absolute Auto 4.1 x10*3/uL (2.0-8.3); Neutrophils Percent Auto 71.3 % (45-73); Platelet Count 133 X10*3/uL (160-400); Red Blood Count 4.56 X10*6/uL (4.60-5.80); Red Cell Distribution Width 13.2 % (11.0-16.0); White Blood Count 5.8 X10*3/uL (4.8-10.8)
[2022-01-16 19:10] LABS: Anion Gap 14 (12-20); Blood Urea Nitrogen 13 mg/dL (9-16); Calcium 8.8 mg/dL (8.4-10.2); Carbon Dioxide 26 mmol/L (22-29); Chloride 102 mmol/L (96-108); Creatinine Clr Calc Pharmacy 163.5; Estimated Glomerular Filt Rate > 60; Glucose Random 94 mg/dL (60-115); Potassium 4.1 mmol/L (3.3-5.1); Sodium 138 mmol/L (135-145)
[2022-01-16] MEDS: dexAMETHasone 6 MG TABLET PO (20:31)
[2022-01-16 22:03] LABS: Appearance Urine Cloudy; Color Urine Yellow; Glucose Urine UA Negative (Negative); Leukocyte Esterase Urine Trace (Negative); Nitrite Urine Negative (Negative); PH 7.5 (5.0-9.0); Specific Gravity - Urine 1.025 (1.005-1.025); UMIC TRIGGER UA YES; Urine Blood Negative (Negative); Urine Ketones Negative (Negative); Urine Protein Negative (Neg-Trace)
[2022-01-16 22:15] LABS: Amphetamine Screen Urine Not Detected (Not Detect); Barbiturates, Urine Not Detected (Not Detect); Benzodiazepines Screen Urine Not Detected (Not Detect); Cannabinoid Screen Urine Not Detected (Not Detect); Cocaine Screen Urine Not Detected (Not Detect); Fentanyl, urine Not Detected (Not Detect); Opiate Screen Urine Not Detected (Not Detect); Phencyclidine Screen Urine Not Detected (Not Detect)
[2022-01-16 22:18] LABS: Bacteria Urine None Seen (None Seen); Hyaline Casts Urine 0-2 /LPF (0-2); RBC Urine 0-2 /HPF (0-2); Squamous Epithelial Cell Urine 0-2 /HPF (0-2); WBC Urine 0-5 /HPF (0-5)
[2022-01-16 23:46] VITALS: BP 125/79; PULSE 95; RESP 25; TEMP 37.2; O2SAT 98
[2022-01-17] MEDS: guaiFEN/Codeine SF 200/20/10ML 10 ML LIQUID PO (01:16)
--- NOTE | 2022-01-17 05:57 | PC.NURSE ---
Patient slept through the night, struggle to fall sleep due to coughing, patient is COVID +, Robitussin 10 ml administered @ 01.46 with + effect, SpO2 98% at room air, patient engaged well with [facility] clinician, disposition pending/patient will be reevaluated n in the morning, behavior appropriate/non concerning, patient follows quarantine protocol well, medication compliant, will continue to monitor.
--- NOTE | 2022-01-17 07:41 | PC.NURSE ---
patient appears to remain at rest at present, c/o abdominal discomfort which may be related to contstipation or covid sx, patient appears in no acute distress presently
[2022-01-17 09:15] VITALS: BP 138/94; PULSE 84; RESP 13; TEMP 36.4; O2SAT 93
[2022-01-17 12:35] LABS: Glucose, Whole Blood 119 mg/dL (60-115)
[2022-01-17] MEDS: Famotidine 20 MG TABLET PO ×2 (12:57→21:33)
[2022-01-17] MEDS: QUEtiapine Fumarate 100 MG TABLET PO (13:37)
[2022-01-17] MEDS: Levothyroxine Sodium 75 MCG TABLET PO (13:37)
[2022-01-17] MEDS: lisinopriL 20 MG TABLET PO (13:38)
[2022-01-17] MEDS: Gabapentin 600 MG TABLET PO ×2 (13:54→21:33)
--- NOTE | 2022-01-17 16:26 | MHC.CARE ---
Call from patient's mother, Madiha Dupont [phone], she was concerned about her son going home to his sister's house because he has COVID and she does not. Told her that [facility] is still working with patient and a disposition has not been reached yet.
[2022-01-17] MEDS: QUEtiapine Fumarate 300 MG TABLET PO (21:33)
[2022-01-17] MEDS: Mirtazapine 30 MG TABLET PO (21:33)
[2022-01-18 05:16] VITALS: BP 121/81; PULSE 91; RESP 16; TEMP 37; O2SAT 95
--- NOTE | 2022-01-18 05:37 | PC.NURSE ---
Patient slept through the night, no distress observed/reported, patient is COVID + FOLLOWS quarantine protocol well, medication compliant, patient is cleared by [facility], patient lives with sister and she doesn't want to take him back due to covid, behavior appropriate, VSS, will continue to monitor.
[2022-01-18] MEDS: Levothyroxine Sodium 75 MCG TABLET PO (06:18)
--- NOTE | 2022-01-18 07:09 | PC.NURSE ---
patient appears to remain asleep at present respirations are even and unlabored due for pysch consult and re-evaluation today patient appear i no distress
--- NOTE | 2022-01-18 07:33 | PC.NURSE ---
patient espresses to staff that he's hearing voices, this travel writer expressed he has a medication in am med pass to address this, patient was offered anc concurred to have available clonazepam to help with anxiety.
[2022-01-18] MEDS: clonazePAM 0.5 MG TABLET PO (07:43)
[2022-01-18] MEDS: Famotidine 20 MG TABLET PO ×2 (07:43→21:31)
[2022-01-18] MEDS: lisinopriL 20 MG TABLET PO (07:43)
[2022-01-18] MEDS: QUEtiapine Fumarate 100 MG TABLET PO (07:44)
[2022-01-18] MEDS: Gabapentin 600 MG TABLET PO ×3 (07:44→21:31)
--- NOTE | 2022-01-18 07:53 | PC.NURSE ---
client asking approriate questions in regard to asking for psychiatry
[2022-01-18] MEDS: Acetaminophen 325 MG TABLET 650 MG PO (15:10)
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
--- NOTE | 2022-01-18 18:52 | MHC.CARE ---
Pt was psychiatrically cleared by [facility] and psychiatry at this time. Pt was referred to Case management, however told Janine from that he believes he needs to be hospitalized and refused anything she had to offer. This life underwriter then went and spoke to pt to reiterate that he does not meet criteria for inpatient and that he needs to be thinking of alternative plans and is also covid +. Pt was dissatisfied with this conversation stating that he needs to be hospitalized because he is suicidal. He states you people like to ramesh over here. I hope everyone on M5 will be happy when I'm gone, you guys will still come to work tomorrow . Per N chava pt has been struggling with ongoing issues of an unstable living environment, financial struggles and underlying unresolved trauma sx's. Pt becomes quickly overwhelmed with various stressors. Pt is primarily presenting to the ED and requesting an inpatient stay due to housing dissatisfaction and continued to increase suicidal statements when discussing discharging. Of note pt also just discharged from on 01/13/22. He told [facility] you will read about me on the news . Pt makes suicidal statements with more acuity in the context of discussion surrounding discharging. CARE team spoke to Dr. Adorno who reported if pt is resistant to any treatment she would recommend getting security involved and encourage him to leave. Pt spoke with Janine from for a second time and states he will allow her to put in a referral for respite, however Janine states this is no guarantee and she will find out more information tomorrow, and pt was also informed that he may need to return back home to his sister's house to await placement. Plan is for pt to remain the night and Janine will follow up with respite referral tomorrow.
[2022-01-18] MEDS: Mirtazapine 30 MG TABLET PO (21:31)
[2022-01-18] MEDS: QUEtiapine Fumarate 300 MG TABLET PO (21:32)
[2022-01-19] MEDS: Levothyroxine Sodium 75 MCG TABLET PO (05:50)
--- NOTE | 2022-01-19 05:52 | PC.NURSE ---
Patient slept through the night, no distress observed/reported, patient compliant with medication, COVID + compliant with quarantine protocol, VSS, behavior appropriate and non concerning, patient is not a crises patient anymore cleared by psychiatrist and crises, patient is case management case, shelter care referral was done per CM, will continue to monitor.
[2022-01-19 06:00] VITALS: BP 116/76; PULSE 88; RESP 16; TEMP 37; O2SAT 94
--- NOTE | 2022-01-19 07:38 | PC.NURSE ---
report recieved from night nurse LOREN Briesno Pt beginning to wake up, pt states He is feeling stuffed up this morning . Still having vague passing thoughts of SI. Stating the thoughts come and go . Spoke with MD Carleen, Care team will re-visit pt to monitor for d/c needs
[2022-01-19] MEDS: Famotidine 20 MG TABLET PO ×2 (08:17→21:31)
[2022-01-19] MEDS: QUEtiapine Fumarate 100 MG TABLET PO (08:17)
[2022-01-19] MEDS: Gabapentin 600 MG TABLET PO ×3 (08:17→21:29)
[2022-01-19] MEDS: lisinopriL 20 MG TABLET PO (08:17)
[2022-01-19] MEDS: clonazePAM 0.5 MG TABLET PO (08:35)
--- NOTE | 2022-01-19 08:39 | PC.NURSE ---
This nurse entered pts room to give pt morning medications. Pt shaking and crying in bed. This nurse sat down to speak with the pt and noticed a loosely tied pair of pants around the pts neck, not compromising circulation. Pt explained that crisis does not think I am suicidal but if they saw this, maybe they would believe This nurse educated the pt on the importance of safe decisions and how his current actions were not safe. The pants were removed from around the pts neck, no physical distress present. Pt medicated with PRN Clonazepam to assist with decreasing anxiety. Pt states he is not ready to go home and does not feel safe going elsewhere.
--- NOTE | 2022-01-19 11:01 | MHC.CM.ED ---
Patient remains in ER. Waiting for psych consult note to be completed. Referral broadcasted within the [facility] to all facilities that are contracted with [facility] and accepting Covid positive patients. Patient will need a Level 2 exemption letter from [facility]. No bed offers have been made yet. Continue to monitor for d/c needs.
--- NOTE | 2022-01-19 11:10 | PC.NURSE ---
Pt sister called to check in and inform us that she would prefer Fredi not come back to her house as she does not have running water at this time and does not have a room for him to stay in considering he is COVID positive. Pt sister states I hope that he can get a short term placement
--- NOTE | 2022-01-19 14:00 | PC.NURSE ---
Pt provided with activity packet including coloring pages, word finds, cross word puzzles, and sensory item. Simple OT interventions indicated for pt wile awaiting disposition in behavioral POD.
--- NOTE | 2022-01-19 15:43 | MHC.CM.ED ---
Psych consult uploaded. Behzad Santillan in [facility]. Fabiana will review when Covid Recovered (01/27). Sister is unable to take pt back into her home. CM following for d/c planning.
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
[2022-01-19] MEDS: Acetaminophen 325 MG TABLET 975 MG PO (21:29)
[2022-01-19] MEDS: QUEtiapine Fumarate 300 MG TABLET PO (21:31)
[2022-01-19] MEDS: Mirtazapine 30 MG TABLET PO (21:31)
[2022-01-20] MEDS: Levothyroxine Sodium 75 MCG TABLET PO (06:32)
--- NOTE | 2022-01-20 07:30 | PC.NURSE ---
Patient slept through the night, no distress observed/reported, patient compliant with medication, COVID + compliant with quarantine protocol, VSS, behavior appropriate and non concerning, Case management pending disposition, will continue to monitor.
--- NOTE | 2022-01-20 07:38 | PC.NURSE ---
Report recieved. PT currently resting, respirations even and unlabored, in no apparent distress. PT is case management follow up.
[2022-01-20 10:22] VITALS: BP 86/54; PULSE 68; RESP 17; TEMP 37.4; O2SAT 96
[2022-01-20 10:30] VITALS: BP 92/68
--- NOTE | 2022-01-20 10:53 | ECG_ITS ---
Test Reason : medical clearance Blood Pressure : / mmHG Vent. Rate : 080 BPM Atrial Rate : 080 BPM P-R Int : 164 ms QRS Dur : 076 ms QT Int : 372 ms P-R-T Axes : -11 -12 -02 degrees QTc Int : 429 ms Normal sinus rhythm Cannot rule out Anterior infarct , age undetermined Abnormal ECG No previous ECGs available Referred By: Neelam Aguilar Electronically Signed By:BETHANY SANCHEZ
[2022-01-20 11:44] LABS: MANUAL DIFF FLAG NO
[2022-01-20 11:46] LABS: Basophils Percent Auto 0.4 % (0-2); Eosinophils Absolute Auto 0.1 X10*3/uL (0.0-0.4); Eosinophils Percent Auto 3.1 % (0-4); Hematocrit 49.9 % (42.0-52.0); Hemoglobin 16.4 g/dl (14.0-18.0); Imm Gran Abs Auto 0.02 X10*3/uL (0.00-0.03); Imm Gran Pct Auto 0.4 % (0.0-0.4); Lymphocytes Absolute Auto 1.3 X10*3/uL (1.2-4.9); Lymphocytes Percent Auto 29.1 % (20-40); Mean Corpuscular HGB Conc 32.9 g/dl (31.0-36.0); Mean Corpuscular Hemoglobin 31.2 pg (27.0-33.0); Mean Corpuscular Volume 94.9 fL (80.0-98.0); Mean Platelet Volume 12.8 fL (9.4-12.4); Monocytes Absolute Auto 0.7 X10*3/uL (0.1-1.2); Monocytes Percent Auto 14.2 % (2-11); Neutrophils Absolute Auto 2.4 x10*3/uL (2.0-8.3); Neutrophils Percent Auto 52.8 % (45-73); Platelet Count 129 X10*3/uL (160-400); Red Blood Count 5.26 X10*6/uL (4.60-5.80); Red Cell Distribution Width 13.1 % (11.0-16.0); White Blood Count 4.6 X10*3/uL (4.8-10.8)
[2022-01-20 11:56] VITALS: BP 112/79; PULSE 75
[2022-01-20 11:57] VITALS: BP 106/77; BP 109/88; PULSE 100; PULSE 86
[2022-01-20 12:00] LABS: Alanine Aminotransferase 34 U/L (0-40); Alkaline Phosphatase 132 U/L (39-117); Anion Gap 14 (12-20); Aspartate Amino Transferase 24 U/L (5-37); Bilirubin Direct 0.3 mg/dL (0.0-0.5); Bilirubin Total 0.7 mg/dL (0.0-1.0); Blood Urea Nitrogen 12 mg/dL (9-16); Calcium 8.9 mg/dL (8.4-10.2); Carbon Dioxide 28 mmol/L (22-29); Chloride 98 mmol/L (96-108); Creatinine Clr Calc Pharmacy 148.1; Estimated Glomerular Filt Rate > 60; Glucose Random 115 mg/dL (60-115); Magnesium 1.8 mg/dL (1.6-2.6); Potassium 4.2 mmol/L (3.3-5.1); Sodium 136 mmol/L (135-145)
[2022-01-20] MEDS: clonazePAM 0.5 MG TABLET PO (12:02)
[2022-01-20] MEDS: Gabapentin 600 MG TABLET PO ×2 (14:48→21:53)
--- NOTE | 2022-01-20 18:37 | PC.NURSE ---
PT SLEEPING INTERMITTENTLY DURING THE DAY AND SPEAKING OVER THE PHONE. EATING WELL. RESP EVEN, NONLABOURED.
[2022-01-20] MEDS: Mirtazapine 30 MG TABLET PO (21:53)
[2022-01-20] MEDS: Famotidine 20 MG TABLET PO (21:53)
[2022-01-20] MEDS: QUEtiapine Fumarate 300 MG TABLET PO (21:53)
[2022-01-20] MEDS: Acetaminophen 325 MG TABLET 975 MG PO (21:54)
[2022-01-21] MEDS: Levothyroxine Sodium 75 MCG TABLET PO (05:40)
[2022-01-21 06:57] VITALS: BP 131/86; PULSE 73; RESP 20; TEMP 36.7; O2SAT 96
--- NOTE | 2022-01-21 07:34 | PC.NURSE ---
patient appears to remain asleep at present respirations are even and unlabored patient appears in no distress
[2022-01-21] MEDS: Famotidine 20 MG TABLET PO ×2 (08:20→21:23)
[2022-01-21] MEDS: QUEtiapine Fumarate 100 MG TABLET PO (08:20)
[2022-01-21] MEDS: Gabapentin 600 MG TABLET PO ×3 (08:20→21:23)
[2022-01-21] MEDS: clonazePAM 0.5 MG TABLET PO (13:19)
[2022-01-21] MEDS: Acetaminophen 325 MG TABLET 650 MG PO ×2 (13:31→21:22)
[2022-01-21 20:31] LABS: IDNOW Serial# 16C4AD1C
[2022-01-21 20:32] LABS: COVID-19 Test Positive (Negative)
[2022-01-21] MEDS: QUEtiapine Fumarate 300 MG TABLET PO (21:23)
[2022-01-21] MEDS: Mirtazapine 30 MG TABLET PO (21:23)
[2022-01-22] MEDS: Levothyroxine Sodium 75 MCG TABLET PO (05:43)
[2022-01-22 05:50] VITALS: BP 115/84; PULSE 75; RESP 16; TEMP 36.7; O2SAT 96
--- NOTE | 2022-01-22 06:27 | PC.NURSE ---
Patient slept through the night, no distress observed/reported, patient compliant with medication, COVID retest completed result still positive, compliant with quarantine protocol, VSS, behavior appropriate and non concerning, case management pending disposition, will continue to monitor.
--- NOTE | 2022-01-22 07:09 | PC.NURSE ---
patient appears to remain asleep at present respirations are even and unlabored patient appears in no distress
[2022-01-22] MEDS: Gabapentin 600 MG TABLET PO ×3 (10:11→21:54)
[2022-01-22] MEDS: Famotidine 20 MG TABLET PO ×2 (10:11→21:54)
[2022-01-22] MEDS: QUEtiapine Fumarate 100 MG TABLET PO (10:11)
[2022-01-22] MEDS: Acetaminophen 325 MG TABLET 650 MG PO ×2 (15:06→21:55)
[2022-01-22] MEDS: clonazePAM 0.5 MG TABLET PO (15:07)
[2022-01-22] MEDS: Mirtazapine 30 MG TABLET PO (21:54)
[2022-01-22] MEDS: QUEtiapine Fumarate 300 MG TABLET PO (21:54)
[2022-01-23] MEDS: Levothyroxine Sodium 75 MCG TABLET PO (05:44)
--- NOTE | 2022-01-23 05:53 | PC.NURSE ---
Patient slept through the night, no distress observed/reported, patient compliant with medication, COVID + and it 6 and half days since first tested positive, compliant with quarantine protocol, VSS, behavior appropriate and non concerning, case management pending disposition, will continue to monitor.
[2022-01-23 05:56] VITALS: BP 103/65; PULSE 64; RESP 15; TEMP 36.6; O2SAT 95
[2022-01-23] MEDS: Gabapentin 600 MG TABLET PO ×3 (08:31→22:33)
[2022-01-23] MEDS: Famotidine 20 MG TABLET PO ×2 (08:31→22:33)
[2022-01-23] MEDS: QUEtiapine Fumarate 100 MG TABLET PO (08:31)
[2022-01-23 08:50] VITALS: BP 126/86; PULSE 73; RESP 16; TEMP 37.2; O2SAT 95
--- NOTE | 2022-01-23 14:08 | PC.NURSE ---
Pt seen this date for individual OT tx. Per pts nurse pt tested COVID - earlier this day. Pt presents with blunted flat affect and provides one word answers during attempt to engage him in conversation. Pt does express an interest in art and is receptive to coloring pages, word find activities, and sensory item. Pt inquirers about taking a shower as well as shaving. POD staff notified and pt gets set up for shower ADL at conclusion of OT session. Pt is unable to address shaving at this time secondary to POD safety regulations.
[2022-01-23] MEDS: Acetaminophen 325 MG TABLET 650 MG PO (14:47)
[2022-01-23] MEDS: clonazePAM 0.5 MG TABLET PO (14:47)
[2022-01-23 17:20] VITALS: BP 116/80; PULSE 78; RESP 15; TEMP 36.2; O2SAT 99
--- NOTE | 2022-01-23 21:53 | MHC.CM.ED ---
Behzda Santillan is reviewing. Trying to get care home care for patient. Pt cannot go back to sisters home. Pt will be Covid recovered on 01/27. Pt has been cleared by psych. ZARA to follow for d/c planning.
[2022-01-23] MEDS: QUEtiapine Fumarate 300 MG TABLET PO (22:33)
[2022-01-23] MEDS: Mirtazapine 30 MG TABLET PO (22:33)
[2022-01-24] MEDS: Levothyroxine Sodium 75 MCG TABLET PO (06:07)
--- NOTE | 2022-01-24 06:09 | PC.NURSE ---
Patient slept through the night, no distress observed/reported, patient compliant with medication, VSS, behavior appropriate and non concerning, case management pending disposition, will continue to monitor.
[2022-01-24 06:37] VITALS: BP 130/89; PULSE 68; RESP 16; TEMP 36.4; O2SAT 97
--- NOTE | 2022-01-24 07:31 | PC.NURSE ---
patient appears to remain asleep at present respirations are even and unlabored patient appears in no distress.
[2022-01-24] MEDS: Acetaminophen 325 MG TABLET 650 MG PO ×2 (10:22→20:20)
[2022-01-24] MEDS: Gabapentin 600 MG TABLET PO ×3 (10:22→20:19)
[2022-01-24] MEDS: Famotidine 20 MG TABLET PO ×2 (10:22→20:20)
[2022-01-24] MEDS: clonazePAM 0.5 MG TABLET PO (10:23)
[2022-01-24] MEDS: QUEtiapine Fumarate 100 MG TABLET PO (10:23)
--- NOTE | 2022-01-24 15:15 | PC.NURSE ---
Pt seen this day for individual OT tx via therapeutic use of self. Pt presents verbose with increased anxiety/agitation with regard to his current living situation stating that he lives with his sister whom is a hoarder . Pt also states that he would like someone to find adequate housing for him during his stay here. Pts concerns validated and pt redirected to POD milieu were he could sit at a table and engage in his art work, read, or rock in weighted rocking chair. Pt presents with calmer affect and is receptive to suggestions upon conclusion of session.
[2022-01-24] MEDS: QUEtiapine Fumarate 300 MG TABLET PO (20:19)
[2022-01-24] MEDS: Mirtazapine 30 MG TABLET PO (20:19)
[2022-01-25 06:06] VITALS: BP 132/81; PULSE 69; RESP 17; TEMP 36.8; O2SAT 94
[2022-01-25] MEDS: Levothyroxine Sodium 75 MCG TABLET PO (06:07)
--- NOTE | 2022-01-25 06:58 | PC.NURSE ---
patient appears to remain asleep at present respirations are even and unlabored patient appears in no distress
[2022-01-25] MEDS: QUEtiapine Fumarate 100 MG TABLET PO (08:49)
[2022-01-25] MEDS: Gabapentin 600 MG TABLET PO ×3 (08:49→20:34)
[2022-01-25] MEDS: Famotidine 20 MG TABLET PO ×2 (08:49→20:43)
[2022-01-25 10:31] VITALS: BP 130/87; PULSE 79; RESP 16; TEMP 36.8; O2SAT 95
[2022-01-25 10:56] LABS: COVID-19 Test Positive (Negative); IDNOW Serial# 16C4AD1C
[2022-01-25] MEDS: Acetaminophen 325 MG TABLET 650 MG PO ×2 (12:52→23:48)
[2022-01-25] MEDS: clonazePAM 0.5 MG TABLET PO (12:52)
--- NOTE | 2022-01-25 14:23 | MHC.CM.ED ---
Patient remains in ER. Positive for Covid on 01/16. Patient has been cleared by crisis. CM has been trying to find [facility] in a [facility] facility. Due to being positive for Covid, patient has been difficult to place. Anticipate patient will be easier to find placement for as of 01/27. Continue to monitor for d/c needs.
--- NOTE | 2022-01-25 14:31 | PC.NURSE ---
Pt seen this date for individual OT tx. Pt reports mild anxiety as he received PO clonazepam within the last hour and states I get anxious when i start thinking too much . Pt provided with independent reading as well as sensory item with good reception specialist.
[2022-01-25] MEDS: QUEtiapine Fumarate 300 MG TABLET PO (20:43)
[2022-01-25] MEDS: Mirtazapine 30 MG TABLET PO (21:08)
--- NOTE | 2022-01-26 04:14 | PC.NURSE ---
Patient in his room slept well, comfortable.V/S stable.Will continue to monitor.
[2022-01-26 05:38] VITALS: BP 138/84; PULSE 69; RESP 20; TEMP 36.4; O2SAT 93
[2022-01-26] MEDS: Levothyroxine Sodium 75 MCG TABLET PO (05:45)
--- NOTE | 2022-01-26 07:15 | PC.NURSE ---
patient appears to remain asleep respirations are even and unlabored patient appears in no distress
[2022-01-26] MEDS: Gabapentin 600 MG TABLET PO ×3 (09:22→21:28)
[2022-01-26] MEDS: Famotidine 20 MG TABLET PO ×2 (09:22→21:32)
[2022-01-26] MEDS: QUEtiapine Fumarate 100 MG TABLET PO (09:22)
[2022-01-26 14:00] VITALS: RESP 18
[2022-01-26] MEDS: Acetaminophen 325 MG TABLET 650 MG PO (14:33)
[2022-01-26] MEDS: clonazePAM 0.5 MG TABLET PO (14:33)
--- NOTE | 2022-01-26 14:46 | MHC.CM.ED ---
Patient remains in ER. Originally tested positive for Covid on 01/16. Looking for [facility] care at shelter facility. Referral broadcasted in [facility] to all facilities contracted with [facility] within 20 miles. Continue to monitor for d/c needs.
--- NOTE | 2022-01-26 16:50 | PC.NURSE ---
Shift note: pt a and o x 4. Ambulates through pod w/ steady gait. Pt medicated with PRNs for anxiety and headache. Offers no complaints during shfit.
[2022-01-26 19:45] VITALS: BP 145/80; PULSE 68; RESP 16; TEMP 36.6; O2SAT 97
[2022-01-26] MEDS: Mirtazapine 30 MG TABLET PO (21:28)
[2022-01-26] MEDS: QUEtiapine Fumarate 300 MG TABLET PO (21:32)
[2022-01-27] MEDS: Levothyroxine Sodium 75 MCG TABLET PO (06:01)
[2022-01-27 06:11] VITALS: BP 140/86; PULSE 74; RESP 16; TEMP 36.9; O2SAT 97
--- NOTE | 2022-01-27 07:02 | PC.NURSE ---
patient appears to remain asleep at present respirations are even and unlabored patient appears in no distress
[2022-01-27] MEDS: Gabapentin 600 MG TABLET PO ×2 (09:25→14:06)
[2022-01-27] MEDS: Famotidine 20 MG TABLET PO (09:25)
[2022-01-27] MEDS: QUEtiapine Fumarate 100 MG TABLET PO (09:25)
--- NOTE | 2022-01-27 10:33 | MHC.CM.ED ---
Addendum entered by Grace El 01/27/22 13:23: Patient has been denied by [facility]. Waiting to hear from [facility]. Original Note: Patient remains in ER. Now Covid recovered. Has [facility]. Referral for intermediate facility broadcasted within the [facility] to all facilities contracted with [facility]. 146 referrals made. Continue to monitor for d/c needs.
[2022-01-27] MEDS: clonazePAM 0.5 MG TABLET PO (14:06)
--- NOTE | 2022-01-27 14:13 | MHC.CM.ED ---
No bed offers made at this time. Dr Heaton aware patient will be discharged with [facility] list. Met with patient in regards to discharge planning. Patient verbalized understanding that he will be discharge. Requesting to take a shower and get changed and then transport to sister's house. LOREN Schmitz aware and will notify CM when patient is ready for transport. Charleen Rivero CM Director aware. Continue to monitor for d/c needs.
[2022-01-27] MEDS: Acetaminophen 325 MG TABLET 650 MG PO (14:14)
== END 2022-01-27 15:08 | disposition home or self-care (01) ==
PROVIDERS: Emergency Medicine; Nurse Practitioner Family; Emergency Provider Internal Medicine; PCP Internal Medicine
DX: U07.1 COVID-19 (principal); F32.2 Major depressive disorder, single episode, severe without psychotic features; R45.851 Suicidal ideations; F39 Unspecified mood [affective] disorder; F41.9 Anxiety disorder, unspecified; I10 Essential (primary) hypertension; E66.9 Obesity, unspecified; Z68.41 Body mass index [BMI] 40.0-44.9, adult; Z72.89 Other problems related to lifestyle; Z63.5 Disruption of family by separation and divorce; Z59.01 Sheltered homelessness; Z91.51 Personal history of suicidal behavior; Z79.02 Long term (current) use of antithrombotics/antiplatelets; Z79.899 Other long term (current) drug therapy
CPT/HCPCS: 36415; 71045; 80048; 80076; 80307; 81001; 81003; 82947; 83735; 85025; 87635; 93005; 99285; J8540